=== PATIENT | female | born 1945 | race Caucasian/White ===

== ENCOUNTER 2023-02-21 17:40 | Emergency (ER) | payer MEDICARE, SELFPAY ==
[2023-02-21 17:44] VITALS: BP 158/82; PULSE 62; RESP 22; TEMP 36.6; O2SAT 98; BMI 36.0
--- NOTE | 2023-02-21 18:05 | ED.GENADUL1 ---
Documented by User: JACQUE Cantu 02/21/23 18:08 HPI - General Adult General Chief complaint: Skin/Abscess/Foreign Body Stated complaint: bite Time Seen by Provider: 02/21/23 17:46 Source: patient Mode of arrival: walk-in History of Present Illness HPI narrative: patient is a 77-year-old female who presents to the emergency department for redness and swelling to the left hand, dorsum. Patient states she was stung by an insect this morning, approximately six hours ago and throughout the day she has developed redness and swelling of the dorsum of the left hand. She denies any diffuse urticaria. She does not believe the insect was a bee. She denies lip swelling, tongue swelling or difficulty breathing. No medications taken prior to arrival. Related Data Previous Rx's Medication Instructions Recorded hydroxyzine HCl 25 mg tablet 25 mg PO Q6H PRN itching #20 tabs 02/21/23 prednisone 20 mg tablet See Rx Instructions .Route 02/21/23 .COMPLEX 4 days #6 tabs Allergies Allergy/AdvReac Type Severity Reaction Status Date / Time No Known Drug Allergies Allergy Verified 02/21/23 17:44 Review of Systems ROS Constitutional Denies: fever or chills Ears, nose, mouth, and throat Denies: throat pain Respiratory Denies: shortness of breath Gastrointestinal Denies: nausea or vomiting Musculoskeletal Denies: back pain Integumentary/Breast Reports: rash Endocrine Denies: excessive urination Hematologic/Lymphatic Denies: easy bruising Exam Narrative Exam Narrative: Gen.: Awake, alert, in no distress Head: Normocephalic, atraumatic ENT: Moist mucous membranes, no facial swelling, tongue swelling or lip swelling noted. Respiratory: No respiratory distress, lungs clear bilaterally; no wheezing or stridor Cardio: Regular rate and rhythm Extremities: Moves extremities equally, dorsum of the left hand is diffusely edematous and mildly erythematous. There is no swelling or redness over the left wrist. No red streaking or diffuse urticaria noted. No evidence of retained stinger Psych: Normal mood and affect Neuro: No focal neuro deficit Skin: Warm, dry, intact Constitutional Vital Signs, click to edit/add: Last Vital Signs Temp 97.8 F 02/21/23 17:44 Pulse 62 02/21/23 17:44 Resp 22 02/21/23 17:44 BP 158/82 H 02/21/23 17:44 Pulse Ox 98 02/21/23 17:44 O2 Del Method Room Air 02/21/23 18:02 Course Vital Signs Vital signs: Vital Signs Temperature 97.8 F 02/21/23 17:44 Pulse Rate 62 02/21/23 17:44 Respiratory Rate 22 02/21/23 17:44 Blood Pressure 158/82 H 02/21/23 17:44 Pulse Oximetry 98 02/21/23 17:44 Oxygen Delivery Method Room Air 02/21/23 17:44 Temperature 97.8 F 02/21/23 17:44 Pulse Rate 62 02/21/23 17:44 Respiratory Rate 22 02/21/23 17:44 Blood Pressure 158/82 H 02/21/23 17:44 Pulse Oximetry 98 02/21/23 17:44 Oxygen Delivery Method Room Air 02/21/23 18:02 Medical Decision Making MDM Narrative Medical decision making narrative: exam is consistent with localized ALLERGIC reaction from insect sting to the left hand. She was treated with prednisone in the Emergency Room discharged home on antihistamines and a short course of steroids. patient denies any history of diabetes. Follow-up with PCP. Apply ice to the area and return to the Emergency Room if symptoms change or worsen. Medical Records Medical records reviewed: Yes I reviewed the patient's medical records Discharge Plan Discharge Chief Complaint: Skin/Abscess/Foreign Body Clinical Impression: Insect sting, Localized swelling on left hand Patient Disposition: Home, Self-Care Time of Disposition Decision: 18:00 Condition: Good Prescriptions / Home Meds: New hydroxyzine HCl 25 mg tablet 25 mg PO Q6H PRN (Reason: itching) Qty: 20 0RF prednisone 20 mg tablet See Rx Instructions .ROUTE .COMPLEX 4 Days Qty: 6 0RF Rx Instructions: 2 tabs daily for 2 days, then 1 tab daily for 2 days Instructions: Insect Bite or Sting (ED) Stand Alone Forms: Portal Instructions Referrals: Evelio Huston MD [Primary Care Provider] - 1 week Discharge Date/Time: 02/21/23 18:16 Documented by User: Levi Ly MD 02/21/23 20:20 HPI - General Adult General Chief complaint: Skin/Abscess/Foreign Body Stated complaint: bite Time Seen by Provider: 02/21/23 17:46 Related Data Previous Rx's Medication Instructions Recorded hydroxyzine HCl 25 mg tablet 25 mg PO Q6H PRN itching #20 tabs 02/21/23 prednisone 20 mg tablet See Rx Instructions .Route 02/21/23 .COMPLEX 4 days #6 tabs Allergies Allergy/AdvReac Type Severity Reaction Status Date / Time No Known Drug Allergies Allergy Verified 02/21/23 17:44 Exam Constitutional Vital Signs, click to edit/add: Last Vital Signs Temp 97.8 F 02/21/23 17:44 Pulse 62 02/21/23 17:44 Resp 22 02/21/23 17:44 BP 158/82 H 02/21/23 17:44 Pulse Ox 98 02/21/23 17:44 O2 Del Method Room Air 02/21/23 18:02 Course Vital Signs Vital signs: Vital Signs Temperature 97.8 F 02/21/23 17:44 Pulse Rate 62 02/21/23 17:44 Respiratory Rate 22 02/21/23 17:44 Blood Pressure 158/82 H 02/21/23 17:44 Pulse Oximetry 98 02/21/23 17:44 Oxygen Delivery Method Room Air 02/21/23 17:44 Temperature 97.8 F 02/21/23 17:44 Pulse Rate 62 02/21/23 17:44 Respiratory Rate 22 02/21/23 17:44 Blood Pressure 158/82 H 02/21/23 17:44 Pulse Oximetry 98 02/21/23 17:44 Oxygen Delivery Method Room Air 02/21/23 18:02 Medical Decision Making MDM Narrative Medical decision making narrative: exam is consistent with localized ALLERGIC reaction from insect sting to the left hand. She was treated with prednisone in the Emergency Room discharged home on antihistamines and a short course of steroids. patient denies any history of diabetes. Follow-up with PCP. Apply ice to the area and return to the Emergency Room if symptoms change or worsen. I, Dr Ly, have reviewed the above progress note and course of action in the ER; agree with the above. I have personally seen and evaluated this patient, gone over history and physical, and discussed disposition and treatment plan with the patient. Discharge Plan Discharge Chief Complaint: Skin/Abscess/Foreign Body Clinical Impression: Insect sting, Localized swelling on left hand Patient Disposition: Home, Self-Care Time of Disposition Decision: 18:00 Condition: Good Prescriptions / Home Meds: New hydroxyzine HCl 25 mg tablet 25 mg PO Q6H PRN (Reason: itching) Qty: 20 0RF prednisone 20 mg tablet See Rx Instructions .ROUTE .COMPLEX 4 Days Qty: 6 0RF Rx Instructions: 2 tabs daily for 2 days, then 1 tab daily for 2 days Instructions: Insect Bite or Sting (ED) Stand Alone Forms: Portal Instructions Referrals: Evelio Hustno MD [Primary Care Provider] - 1 week Discharge Date/Time: 02/21/23 18:16
[2023-02-21] MEDS: PREDNISONE 20 MG TABLET 60 MG PO (18:12)
== END 2023-02-21 18:16 | disposition home or self-care (01) ==
PROVIDERS: Emergency Provider Emergency Medicine; PCP Family Medicine
DX: T63.481A Toxic effect of venom of other arthropod, accidental (unintentional), initial encounter (principal)
CPT/HCPCS: 99283

== ENCOUNTER 2023-03-20 09:31 | Outpatient (OUT) | payer MEDICARE, SELFPAY ==
[2023-03-20 09:56] LABS: Basophils Percent Auto 0.5 % (0.2-2.0); Eosinophils Absolute Auto 0.2 10^3/uL (0.0-0.7); Eosinophils Percent Auto 3.1 % (0.9-7.0); Hematocrit 41.4 % (36.0-48.0); Hemoglobin 13.9 g/dL (12.0-16.0); Immature Granulocytes Abs Auto 0.02 10^3/uL (0.00-0.03); Immature Granulocytes Pct Auto 0.3 % (0.0-0.5); Lymphocytes Absolute Auto 2.4 10^3/uL (1.2-3.8); Lymphocytes Percent Auto 37.8 % (20.5-60.0); Mean Corpuscular HGB Conc 33.6 g/dL (29.9-35.2); Mean Corpuscular Hemoglobin 31.4 pg (26.7-34.0); Mean Corpuscular Volume 93.5 fL (81.0-99.0); Mean Platelet Volume 9.9 fL (9.5-13.5); Monocytes Absolute Auto 0.5 10^3/uL (0.3-0.8); Monocytes Percent Auto 7.3 % (1.7-12.0); Neutrophils Absolute Auto 3.3 10^3/uL (1.4-6.5); Platelet Count 287 10^3/uL (150-450); Red Blood Count 4.43 10^6/uL (4.20-5.40); Red Cell Distribution Width 12.9 % (11.0-15.0); White Blood Count 6.4 10^3/uL (4.0-11.0)
[2023-03-20 10:49] LABS: Estimated Average Glucose 117 mg/dL; Glycohemoglobin A1C 5.7 % (4.5-6.2)
[2023-03-20 11:46] LABS: Alanine Aminotransferase 28 U/L (14-59); Albumin Globulin Ratio 1.1; Albumin Level 3.6 g/dL (3.4-5.0); Alkaline Phosphatase 61 U/L (46-116); Anion Gap 6.5; Aspartate Amino Transferase 15 U/L (15-37); BUN Creatinine Ratio 15.5; Bilirubin Total 0.4 mg/dL (0.2-1.0); Calcium 8.7 mg/dL (8.5-10.1); Carbon Dioxide 32.5 mmol/L (21.0-32.0); Chloride 109 mmol/L (98-107); Chol HDL Ratio 3.2; Cholesterol 201 mg/dL (<=200); Estimated GFR (African America >60 (>=60); Estimated GFR (Non-African Ame 52 (>=60); Globulin 3.3 g/dL; Glucose 101 mg/dL (74-106); HDL Cholesterol 62 mg/dL (40-60); Sodium 144 mmol/L (136-145); Thyroid Stimulating Hormone 0.407 uIU/mL (0.358-3.740); Total Protein 6.9 g/dL (6.4-8.2); Triglycerides 108 mg/dL (<=150); VLDL CHOLESTEROL 21.6 mg/dL
[2023-03-20 12:21] LABS: Free T4 1.03 ng/dL (0.76-1.46)
== END 2023-03-20 09:32 | disposition home or self-care (01) ==
PROVIDERS: PCP Family Medicine; Visit Provider Family Medicine
DX: R53.83 Other fatigue (principal); Z79.899 Other long term (current) drug therapy; E78.5 Hyperlipidemia, unspecified; E03.9 Hypothyroidism, unspecified; R73.09 Other abnormal glucose
CPT/HCPCS: 36415; 80053; 80061; 83036; 84439; 84443; 85025

== ENCOUNTER 2024-03-15 09:34 | Outpatient (OUT) | payer MEDICARE, SELFPAY ==
[2024-03-15 10:13] LABS: Basophils Percent Auto 0.3 % (0.2-2.0); Eosinophils Absolute Auto 0.1 10^3/uL (0.0-0.7); Hematocrit 40.7 % (36.0-48.0); Hemoglobin 13.7 g/dL (12.0-16.0); Immature Granulocytes Abs Auto 0.03 10^3/uL (0.00-0.03); Immature Granulocytes Pct Auto 0.4 % (0.0-0.5); Lymphocytes Absolute Auto 2.2 10^3/uL (1.2-3.8); Lymphocytes Percent Auto 31.6 % (20.5-60.0); Mean Corpuscular HGB Conc 33.7 g/dL (29.9-35.2); Mean Corpuscular Hemoglobin 31.6 pg (26.7-34.0); Mean Platelet Volume 10.5 fL (9.5-13.5); Monocytes Absolute Auto 0.4 10^3/uL (0.3-0.8); Monocytes Percent Auto 6.2 % (1.7-12.0); Neutrophils Absolute Auto 4.1 10^3/uL (1.4-6.5); Neutrophils Percent Auto 59.5 % (43.0-75.0); Platelet Count 272 10^3/uL (150-450); Red Blood Count 4.33 10^6/uL (4.20-5.40); Red Cell Distribution Width 12.3 % (11.0-15.0); White Blood Count 6.9 10^3/uL (4.0-11.0)
[2024-03-15 11:29] LABS: Estimated Average Glucose 114 mg/dL; Glycohemoglobin A1C 5.6 % (4.5-6.2)
[2024-03-15 11:56] LABS: Alanine Aminotransferase 35 U/L (14-59); Albumin Globulin Ratio 1.2; Albumin Level 3.6 g/dL (3.4-5.0); Alkaline Phosphatase 73 U/L (46-116); Aspartate Amino Transferase 20 U/L (15-37); BUN Creatinine Ratio 11.5; Bilirubin Total 0.5 mg/dL (0.2-1.0); Calcium 9.1 mg/dL (8.5-10.1); Carbon Dioxide 30.3 mmol/L (21.0-32.0); Chloride 106 mmol/L (98-107); Chol HDL Ratio 3.5; Cholesterol 219 mg/dL (<=200); Estimated GFR (African America >60 (>=60); Estimated GFR (Non-African Ame >60 (>=60); Free T3 2.62 pg/mL (2.18-3.98); Globulin 3.1 g/dL; Glucose 110 mg/dL (74-106); HDL Cholesterol 63 mg/dL (40-60); Potassium 4.3 mmol/L (3.5-5.1); Sodium 144 mmol/L (136-145); Thyroid Stimulating Hormone 0.813 uIU/mL (0.358-3.740); Total Protein 6.7 g/dL (6.4-8.2); Triglycerides 127 mg/dL (<=150); VLDL CHOLESTEROL 25.4 mg/dL
[2024-03-16 10:12] LABS: Insulin 13.6 uIU/mL (2.6-24.9)
== END 2024-03-15 09:35 | disposition home or self-care (01) ==
LOC: LAB 09:38
PROVIDERS: PCP Family Medicine; Visit Provider Family Medicine
DX: E03.9 Hypothyroidism, unspecified (principal); I10 Essential (primary) hypertension; K58.9 Irritable bowel syndrome, unspecified; Z85.038 Personal history of other malignant neoplasm of large intestine; M54.30 Sciatica, unspecified side; E78.5 Hyperlipidemia, unspecified; R53.83 Other fatigue; R73.09 Other abnormal glucose; D64.9 Anemia, unspecified
CPT/HCPCS: 36415; 80053; 80061; 83036; 83525; 83540; 84436; 84443; 84481; 85025

== ENCOUNTER 2024-03-19 12:41 | Outpatient (OUT) | payer MEDICARE, SELFPAY ==
--- NOTE | 2024-03-19 12:57 | MM_ITS ---
Patient Name: ASAEL HERNANDES MR#: [id number] : 1945 Exam Date: 03/19/2024 Ordering Doctor: DR SUMAN PETERSON . RADIOLOGY REPORT PROCEDURE: MM TOMOSYNTHESIS SCREENING BI COMPARISON: MG MAMM SCREEN 3D CHRISTIANO CAD, 03/18/2022. MAMMO POST BIOPSY LEFT, 08/06/2018. INDICATIONS: Screening Calculator Name NCI Breast Cancer Risk Assessment Tool 5 Year Breast Cancer Risk 2.10% Lifetime Breast Cancer Risk 4.00% Personal Breast Cancer No Personal Ovarian Cancer No Treatments None Family Cancers Daughter with colon cancer at age 33. LOCATION: [facility] BREAST COMPOSITION: The breasts are heterogeneously dense,which may obscure small masses. FINDINGS: DIAGNOSTIC CATEGORY 2--BENIGN FINDING. NO CHANGE FROM COMPARISON. Scattered benign-appearing calcifications are present. Scattered benign-appearing lymph nodes are present. RIGHT BREAST: No significant suspicious finding. LEFT BREAST: No significant suspicious finding. Stable micro clip marker upper outer quadrant, mid breast RECOMMENDATIONS: ROUTINE MAMMOGRAM AND CLINICAL EVALUATION IN 12 MONTHS. PLEASE NOTE: A NORMAL MAMMOGRAM DOES NOT EXCLUDE THE POSSIBILITY OF BREAST CANCER. A CLINICALLY SUSPICIOUS PALPABLE LUMP SHOULD BE BIOPSIED. Dictated by: Scar Dobbins MD on 03/19/2024 at 14:57 Approved by: Scar Dobbins MD on 03/19/2024 at 14:59
== END 2024-03-19 12:42 | disposition home or self-care (01) ==
LOC: MAMMO 12:43
PROVIDERS: PCP Family Medicine; Visit Provider Family Medicine
DX: Z12.31 Encounter for screening mammogram for malignant neoplasm of breast (principal); Z80.0 Family history of malignant neoplasm of digestive organs
CPT/HCPCS: 77063; 77067

== ENCOUNTER 2025-03-11 09:42 | Outpatient (OUT) | payer MEDICARE, SELFPAY ==
--- OUTSIDE RECORDS SUMMARY | 2025-03-11 09:47 | XMS_ITS | Clinical Summary ---
Author Organization [facility] Address [address] [place] [address] Care Team Providers Care Hha Name Role Phone Unavailable Primary Care Provider Unavailabl e Social History Tobacco Use Types Packs/Day Years Used Date Smoking Tobacco: Never Assessed Comments Unknown Sex and Gender Information Value Date Recorded Sex Assigned at Not on file Legal Sex Female 7:40 PM EDT Gender Identity Not on file Sexual Orientation Not on file Plan of Treatment Not on file
[2025-03-11 10:21] LABS: Hematocrit 40.7 % (36.0-48.0); Hemoglobin 13.7 g/dL (12.0-16.0); Immature Granulocytes Abs Auto 0.04 10^3/uL (0.00-0.03); Immature Granulocytes Pct Auto 0.4 % (0.0-0.5); Lymphocytes Absolute Auto 2.4 10^3/uL (1.2-3.8); Mean Corpuscular HGB Conc 33.7 g/dL (29.9-35.2); Mean Corpuscular Hemoglobin 31.8 pg (26.7-34.0); Mean Corpuscular Volume 94.4 fL (81.0-99.0); Platelet Count 273 10^3/uL (150-450); Red Blood Count 4.31 10^6/uL (4.20-5.40); White Blood Count 9.4 10^3/uL (4.0-11.0)
--- OUTSIDE RECORDS SUMMARY | 2025-03-11 10:49 | XMS_ITS | CCD ---
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 Role Phone NICHOLAS ., DR WILL Primary Care Unavailable BITA, DR ANETTE Mendez Attending Unavailable BITA, DR ANETTE Mendez Admitting Unavailable BITA, DR ANETTE Mendez Consulting Unavailable AARON VICENTE Consulting Unavailable COLLINY ., DR WILL Admitting Unavailable HOY ., DR WILL Primary Care Unavailable HOY ., DR WILL Consulting Unavailable HOY ., DR WILL Attending Unavailable HOY ., DR WILL Admitting Unavailable HOY ., DR WILL Primary Care Unavailable HOY ., DR WILL Consulting Unavailable HOY ., DR WILL Attending Unavailable DESIREE, DR DENIS Mendez Consulting Unavailable Allergies Allergy Classification Reported Allergen(s) Allergy Type Date of Onset Reaction(s) Facility (1 source) Adhesive bandage Drug allergy (disorder) [facility] Repository (1 source) meloxicam Drug Allergy [facility] Rep[facility] Problems Active Problems Problem Classification Problem Date Documented Da te Episodic/Chronic Essential hypertension (1 source) Essential (primary) hypertension; 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: [ESSENTIAL PRIMARY HYPERTENSION] Onset: 04-15-2022 Chronic Headache; including migraine (4 sources) Headache; including migraine; 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: [HEADACHE UNSPECIFIED] Onset: 04-13-2022 Other gastrointestinal disorders (1 source) Irritable bowel syndrome without diarrhea; 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: [IRRITABLE BOWEL SYND W/O DIARRHEA] Onset: 03-21-2022 Chronic Other upper respiratory infections (4 sources) Acute sinusitis, unspecified; 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: [ACUTE SINUSITIS UNSPECIFIED] Onset: 09-21-2022 Episodic Thyroid disorders (1 source) Hypothyroidism, unspecified; 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: [HYPOTHYROIDISM UNSPECIFIED] Onset: 03-21-2022 Chronic Viral infection (1 source) COVID-19; 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: [COVID-19] Onset: 09-25-2022 Past or Other Problems Problem Classification Problem Date Documented Da te Episodic/Chronic Deficiency and other anemia (1 source) Anemia, unspecified; 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: [ANEMIA UNSPECIFIED] Onset: 03-21-2022 Episodic Diabetes mellitus without complication (1 source) Other abnormal glucose; 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: [OTHER ABNORMAL GLUCOSE] Onset: 03-21-2022 Episodic Other aftercare (1 source) 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; 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: [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] Onset: 04-15-2022 Episodic Other aftercare (1 source) Other care home (current) drug therapy; 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: [OTH SNF CURRENT DRUG THERAPY] Onset: 04-15-2022 Episodic Other screening for suspected conditions (not mental disorders or infectious disease) (4 sources) Encounter for screening mammogram for malignant neoplasm of breast; 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: [ENC SCR MAMMO MALIG NEOPLASM BREAST] Onset: 03-18-2022 Episodic Screening and history of mental health and substance abuse codes (1 source) Personal history of nicotine dependence; 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: [PERSONAL HISTORY OF NICOTINE DEPEND] Onset: 04-15-2022 Episodic Results Test Name Value Interpretation Reference Range Facility Covid-19 PCR ([facility])on SARS-CoV-2 (COVID-19) RNA HONORIO+probe Ql (Unsp spec) Detected Abnormal NOT DETECTED [facility] Comment on above: Result Comment: This test is not yet approved or cleared by the [place] FDA. When there are no FDA-approved or cleared tests available, and other criteria are met, FDA can make tests available under an emergency access mechanism called an Emergency Use Authorization (EUA). The EUA for this test is supported by the Environmental Aide of Health and Human Service's declaration that circumstances exist to justify the emergency use of in vitro diagnostics for the detection and/or diagnosis of the virus that causes COVID-19. This EUA will remain in effect for the duration of the COVID-19 declaration justifying emergency of IVDs, unless it is terminated or revoked by the FDA (after which the test may no longer be used). Performed By: #### C [facility] #### [facility] [address] [place] [address] HEAD WO CONon 04-14-2022 CT HEAD WO CON EXAM: CT HEAD WO CON CLINICAL INDICATION: HEADACHE COMPARISON: None TECHNIQUE: Axial CT images of the brain were obtained without contrast. Dose reduction techniques were achieved by using automated exposure control and/or adjustment of mA and/or kV according to patient size and/or use of iterative reconstruction technique. FINDINGS: Brain parenchyma: No mass effect or midline shift is seen. Mcdowell-white differentiation is maintained. No findings suspicious for intracranial hemorrhage. No findings suggesting acute stroke. Periventricular hypoattenuation / patchy white matter hypodensities are statistically most often related to small vessel ischemic disease. Ventricles and extra-axial spaces: Ventricles are concordant with sulci. No findings suggesting hydrocephalus. Visualized paranasal sinuses: No findings suggesting acute sinusitis. Mastoid air cells: Clear. Included portions of the orbits:Included portions of the orbits with no evidence of fracture or other acute pathology. Bones: No fracture is seen. Impression: 1. No evidence for an acute intracranial abnormality. Electronically authenticated by: AARON VICENTE Date: 2022-04-13 22:58 Normal [facility] INSULINon 03-19-2022 Insulin 17.5 uIU/mL Normal 2.6-24.9 [facility] Comment on above: Performed By: #### I NSULIN #### [facility] [address] [place] [address] Dr. Deven Ge T4, T3U, FTI LABCORPon 03-19 Free Thyroxine Index 2.2 Normal 1.2-4.9 [facility] Comment on above: Performed By: #### T HYLC #### [facility] [address] [place] [address] Dr. Deven Ge T3 Uptake 27 % Normal 24-39 [facility] Comment on above: Performed By: #### T HYLC #### [facility] [address] [place] [address] Dr. Deven Ge T4 [Mass/Vol] 8.2 ug/dL Normal 4.5-12.0 [facility] Comment on above: Performed By: #### T HYLC #### [facility] [address] [place] [address] Dr. Deven Ge CBC AUTO DIFFon 03-18-2022 BASO # 0.0 103/ul Normal 0.0-0.1 [facility] Comment on above: Performed By: #### C BC ####[facility] [address] [place] [id number]. Deven Ge Basophils/100 WBC (Bld) 0.4 % Normal 0.2-2.0 [facility] Comment on above: Performed By: #### C BC ####[facility] [address] [place], [place] [id number]. Deven Ge EO # 0.1 103/ul Normal 0.0-0.7 [facility] Comment on above: Performed By: #### C BC ####[facility] [address] [place], [place] [address]Dr. Deven Ge Eosinophils/100 WBC (Bld) 1.9 % Normal 0.9-7.0 [facility] Comment on above: Performed By: #### C BC ####[facility] [address] [place], [place] [address]Dr. Deven Ge Erythrocyte distribution width (RBC) [Ratio] 12.6 % Normal 11.0-15.0 [facility] Comment on above: Performed By: #### C BC ####[facility] [address] [place], [place] [address]Dr. Deven Ge Hematocrit (Bld) [Volume fraction] 40.7 % Normal 36.0-48.0 [facility] Comment on above: Performed By: #### C BC ####[facility] [address] [place], [place] [address]Dr. Deven Ge Hemoglobin (Bld) [Mass/Vol] 13.4 g/dL Normal 12.0-16.0 [facility] Comment on above: Performed By: #### C BC ####[facility] [address] [place], [place] [address]Dr. Deven Ge IG # 0.02 10e3/ul Normal 0.00-0.03 [facility] Comment on above: Performed By: #### C BC ####[facility] [address] [place], [place] [address]Dr. Deven Ge IG % 0.3 % Normal 0.0-0.5 [facility] Comment on above: Performed By: #### C BC ####[facility] [address] [place] [id number]. Deven Ge LYMPH # 2.1 103/ul Normal 1.2-3.8 [facility] Comment on above: Performed By: #### C BC ####[facility] [address] [place] [id number]. Deven Joo Lymphocytes/100 WBC (Bld) 31.2 % Normal 20.5-60.0 [facility] Comment on above: Performed By: #### C BC ####[facility] [address] [place] [id number]. Amairaniana Ge MANUAL DIFF REQ NO Normal [facility] Comment on above: Performed By: #### C BC ####[facility] [address] [place] [id number]. Deven Joo MCH (RBC) [Entitic mass] 31.2 pg Normal 26.7-34.0 [facility] Comment on above: Performed By: #### C BC ####[facility] [address] [place] [id number]. Deven Ge MCHC (RBC) [Mass/Vol] 32.9 g/dL Normal 29.9-35.2 [facility] Comment on above: Performed By: #### C BC ####[facility] [address] [place] [id number]. Deven Joo MCV (RBC) [Entitic vol] 94.9 fL Normal 81.0-99.0 [facility] Comment on above: Performed By: #### C BC ####[facility] [address] [place] [id number]. Deven Ge MONO # 0.5 103/ul Normal 0.3-0.8 [facility] Comment on above: Performed By: #### C BC ####[facility] [address] [place] [id number]. Deven Joo Monocytes/100 WBC (Bld) 6.6 % Normal 1.7-12.0 [facility] Comment on above: Performed By: #### C BC ####[facility] [address] [place] [id number]. Amairaniana Ge NEUT # 4.1 103/ul Normal 1.4-6.5 [facility] Comment on above: Performed By: #### C BC ####[facility] [address] [place] [id number]. Deven Ge Neutrophils/100 WBC (Bld) 59.6 % Normal 43.0-75.0 [facility] Comment on above: Performed By: #### C BC ####[facility] [address] [place] [id number]. Deven Ge Platelet mean volume (Bld) [Entitic vol] 10.7 fL Normal 9.5-13.5 [facility] Comment on above: Performed By: #### C BC ####[facility] [address] [place] [address]Dr. Deven Ge PLT 308 103/ul Normal 150-450 [facility] Comment on above: Performed By: #### C BC ####[facility] [address] [place] [id number]. Deven Ge RBC 4.29 106/ul Normal 4.20-5.40 [facility] Comment on above: Performed By: #### C BC ####[facility] [address] [place] [id number]. Deven Ge WBC 6.9 103/ul Normal 4.0-11.0 [facility] Comment on above: Performed By: #### C BC ####[facility] [address] [place] [id number] Ge GLYCOHEMOGLOBIN A1Con 2021 ADA RECOMMENDATION SEE BELOW Normal [facility] Comment on above: Result Comment: ADA RECOMMENDED LIMIT 4.0 - 6.0 ADA THERAPEUTIC TARGET < 7.0 ACTION SUGGESTED > 7.0 Performed By: #### A 1C #### [facility] [address] [place], [place] [address] Dr. Deven Ge Glucose [Mass/Vol] 111 mg/dL Normal [facility] Comment on above: Performed By: #### A 1C #### [facility] [address] [place] [address] [address] Deven Ge HbA1c (Bld) [Mass fraction] 5.5 % Normal 4.5-6.2 [facility] Comment on above: Performed By: #### A 1C #### [facility] [address] [place] [address] [address] Deven Ge IRONon 03-18-2022 Iron [Mass/Vol] 111.0 ug/dL Normal 50.0-170.0 [facility] Comment on above: Performed By: #### I SHAWN #### [facility] [address] [place] [address] [address] Deven Ge LIPID PROFILEon 03-18-2022 CHOL-HDL RATIO NORM SEE BELOW Normal [facility] Comment on above: Result Comment: 3.3 - 4.4 LOW RISK 4.4 - 7.1 AVERAGE RISK 7.1 - 11.0 MODERATE RISK >11.0 HIGH RISK Performed By: #### L IPID, CMP, TSH #### [facility] [address] [place] [address] [address] Deven Ge Cholesterol [Mass/Vol] 220 mg/dL Critically high <=200 [facility] Comment on above: Performed By: #### L IPID, CMP, TSH #### [facility] [address] [place] [address] [address] Deven Ge Cholesterol in HDL [Mass/Vol] 61 mg/dL Critically high 40-60 [facility] Comment on above: Performed By: #### L IPID, CMP, TSH #### [facility] [address] [place] [address] [address] Deven Ge Cholesterol in LDL [Mass/Vol] 132.2 mg/dL Normal [facility] Comment on above: Performed By: #### L IPID, CMP, TSH #### [facility] [address] [place] [address] [address] Deven Ge Cholesterol.total/Cho lesterol in HDL [Mass ratio] 3.6 {ratio} Normal [facility] Comment on above: Performed By: #### L IPID, CMP, TSH #### [facility] [address] [place] [address] [address] Deven Ge HDL NORMAL > or = 60 mg/dl - LO W CARDIOVASCULAR RISK <40 mg/dl - HIGH CARDIOVASCULAR RISK Normal [facility] Comment on above: Performed By: #### L IPID, CMP, TSH #### [facility] [address] [place] [address] [address] Deven Ge LDL CALC NORMAL SEE BELOW Normal [facility] Comment on above: Result Comment: <100 mg/dl OPTIMAL 100 - 129 mg/dl NEAR OR ABOVE OPTIMAL 130 - 159 mg/dl BORDERLINE HIGH 160 - 189 mg/dl HIGH >190 mg/dl VERY HIGH Performed By: #### L IPID, CMP, TSH #### [facility] [address] [place] [address] [address] Deven Ge Triglyceride [Mass/Vol] 134 mg/dL Normal <=150 [facility] Comment on above: Performed By: #### L IPID, CMP, TSH #### [facility] [address] [place] [address] [address] Deven Ge VLDL CALC 26.8 mg/dL Normal [facility] Comment on above: Performed By: #### L IPID, CMP, TSH #### [facility] [address] [place] [address] [address] Deven Ge MG MAMM SCREEN 3D CHRISTIANO CADon 03-18-2022 MG MAMM SCREEN 3D CHRISTIANO CAD Patient: ASAEL COONEY Exam Date: 03/18/2022 : 1945 Gender:F Ordering : DR SUMAN HUSTON . Admission #: [id number] Family : Order #: [id number] CLICK HERE TO VIEW EXAM RADIOLOGY REPORT PROCEDURE: MAMMOGRAM SCREENING 3D BILATERAL CAD COMPARISON: MAMMO POST BIOPSY LEFT, 07/26/2018. MG MAMM SCREEN CHRISTIANO W CAD, 01/11/2018. MG MAMM CHRISTIANO DIAG W CAD DIG, 10/28/2013. MAMMO POST BIOPSY LEFT, 08/06/2018. INDICATIONS: Screening mammography Calculator Name NCI Breast Cancer Risk Assessment Tool 5 Year Breast Cancer Risk 2.10% Lifetime Breast Cancer Risk 4.50% Personal Breast Cancer No Personal Ovarian Cancer No Treatments None Family Cancers Daughter with colon cancer at age 33. LOCATION: [facility] BREAST COMPOSITION: Heterogeneously dense,which may obscure small masses. FINDINGS: DIAGNOSTIC CATEGORY 2--BENIGN FINDING: RIGHT BREAST: No significant suspicious finding. Scattered benign-appearing calcifications are present. No significant change has occurred. LEFT BREAST: No significant suspicious finding. Scattered benign-appearing calcifications are present. Scattered benign-appearing nodules are present. No significant change has occurred. RECOMMENDATIONS: ROUTINE MAMMOGRAM AND CLINICAL EVALUATION IN 12 MONTHS. PLEASE NOTE: A NORMAL MAMMOGRAM DOES NOT EXCLUDE THE POSSIBILITY OF BREAST CANCER. A CLINICALLY SUSPICIOUS PALPABLE LUMP SHOULD BE BIOPSIED. Dictated by: Denis Montez M.D. on 03/18/2022 at 14:49 Approved by: Denis Montez M.D. on 03/18/2022 at 14:52 Normal [facility] PROF 14(COMP METB)on 022 Albumin [Mass/Vol] 3.6 g/dL Normal 3.4-5.0 [facility] Comment on above: Performed By: #### L IPID, CMP, TSH #### [facility] [address] [place] [address] [address] Deven Ge Albumin/Globulin [Mass ratio] 1.0 {ratio} Normal [facility] Comment on above: Performed By: #### L IPID, CMP, TSH #### [facility] [address] [place] [address] [address] Deven Ge ALP [Catalytic activity/Vol] 69 U/L Normal 46-116 [facility] Comment on above: Performed By: #### L IPID, CMP, TSH #### [facility] [address] [place] [address] [address] Deven Ge ALT [Catalytic activity/Vol] 24 U/L Normal 14-59 [facility] Comment on above: Performed By: #### L IPID, CMP, TSH #### [facility] [address] [place] [address] [address] Deven Ge Anion gap [Moles/Vol] 11.2 mmol/L Normal [facility] Comment on above: Performed By: #### L IPID, CMP, TSH #### [facility] [address] [place] [address] [address] Deven Ge AST [Catalytic activity/Vol] 13 U/L Critically low 15-37 [facility] Comment on above: Performed By: #### L IPID, CMP, TSH #### [facility] [address] [place] [address] [address] Deven Ge Bilirubin [Mass/Vol] 0.4 mg/dL Normal 0.2-1.0 [facility] Comment on above: Performed By: #### L IPID, CMP, TSH #### [facility] [address] [place] [address] [address] Deven Ge Calcium [Mass/Vol] 9.0 mg/dL Normal 8.5-10.1 [facility] Comment on above: Performed By: #### L IPID, CMP, TSH #### [facility] [address] [place] [address] [address] Deven Ge Chloride [Moles/Vol] 104 mmol/L Normal 98-107 [facility] Comment on above: Performed By: #### L IPID, CMP, TSH #### [facility] [address] [place] [address] [address] Deven Ge CO2 [Moles/Vol] 31.0 mmol/L Normal 21.0-32.0 [facility] Comment on above: Performed By: #### L IPID, CMP, TSH #### [facility] [address] [place] [address] [address] Deven Ge Creatinine [Mass/Vol] 0.87 mg/dL Normal 0.55-1.02 [facility] Comment on above: Performed By: #### L IPID, CMP, TSH #### [facility] [address] [place] [address] [address] Deven Ge EGFR-AF SAMOAN >60 Normal >=60 [facility] Comment on above: Performed By: #### L IPID, CMP, TSH #### [facility] [address] [place] [address] [address] Deven Ge EGFR-NON AF SAMOAN >60 Normal >=60 [facility] Comment on above: Performed By: #### L IPID, CMP, TSH #### [facility] [address] [place] [address] [address] Deven Ge Globulin (S) [Mass/Vol] 3.5 g/dL Normal [facility] Comment on above: Performed By: #### L IPID, CMP, TSH #### [facility] [address] [place] [address] [address] Deven Ge Glucose [Mass/Vol] 117 mg/dL Critically high 74-106 [facility] Comment on above: Performed By: #### L IPID, CMP, TSH #### [facility] [address] [place] [address] [address] Deven Ge Potassium [Moles/Vol] 4.2 mmol/L Normal 3.5-5.1 [facility] Comment on above: Performed By: #### L IPID, CMP, TSH #### [facility] [address] [place] [address] Dr. Deven Ge Protein [Mass/Vol] 7.1 g/dL Normal 6.4-8.2 [facility] Comment on above: Performed By: #### L IPID, CMP, TSH #### [facility] [address] [place] [address] Dr. Deven Ge Sodium [Moles/Vol] 142 mmol/L Normal 136-145 [facility] Comment on above: Performed By: #### L IPID, CMP, TSH #### [facility] [address] [place] [address] Dr. Deven Ge Urea nitrogen [Mass/Vol] 12.0 mg/dL Normal 7.0-18.0 [facility] Comment on above: Performed By: #### L IPID, CMP, TSH #### [facility] [address] [place] [address] Dr. Deven Ge Urea nitrogen/Creatinine [Mass ratio] 13.8 mg/mg Normal [facility] Comment on above: Performed By: #### L IPID, CMP, TSH #### [facility] [address] [place] [address] Dr. Deven Ge TSHon 03-18-2022 TSH 0.703 uIU/mL Normal 0.358-3.740 [facility] Comment on above: Performed By: #### L IPID, CMP, TSH #### [facility] [address] [place] [address] [address] Deven Ge Provider Letter FTon 09-30 Provider Letter [facility], [address] [place] [address] [place] [address] Re: ASAEL COONEY Date of : 1945 Thank you for your referral of Asael Cooney who was seen on consultation on 09/17/2020, for occult positive stool with history of colon cancer. A colonoscopy is planned for further evaluation. I have enclosed my consultation notes for your review. I will be happy to follow patient should her symptoms persist. Sincerely, Pavel Atkins MD General Surgery Normal [facility] Lab Reportson 09-28-2020 Lab Reports [id number]:127 Normal [facility] Consent for Procedure/Surger yon 09-21-2020 Consent for Procedure/Surgery [id number]:127 Normal [facility] Ambulatory Clinical Summaryo n 09-18-2020 Ambulatory Clinical Summary {[id number] Normal [facility] General Surgery Office/Clini c Noteon 09-18-2020 General Surgery Office/Clinic Note HPI Staff 74 year old female on consultation from Dr. Huston for occult positive stool. 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 Last colonoscopy was performed in [address] Champion at [facility]. States there is occasional blood in the stool. Denies abdominal pain or cramping but takes Metamucil daily for constipation. Daughter of colon cancer at age 36. Takes 81 mg aspirin daily. History of Present Illness 74 yo female with h/o htn, personal h/o colon cancer and colon polyps, s/p sigmoid colectomy 03/2008; last colonoscopy 4 years ago, no polyps at that time; denies change in bms or blood in stools, no abdominal complaints; abdominal operations also significant for [place]T; on baby asa daily and diclofenac prn; no SBE prophylaxis; fmhx of colon ca in patient's daughter, no fmhx of IBD. Review of Systems PHQ Score Initial Depression Screen Score: 0 ROS - Provider Constitutional: no fever, no sweats, no weight loss. Eyes: no glasses, no blurred vision, no visual loss. ENMT: no dentures, no hoarseness, no swallowing difficulties, no hearing loss, no ear infection(s), no nose bleeds. Cardiovascular: high blood pressure, no chest pain, regular heartbeat, no heart murmur. Respiratory: no shortness of breath, no cough, no asthma, no wheezing. Gastrointestinal: no nausea, no vomiting, no diarrhea, no constipation, no blood in stool, no change in bowel habits, no abdominal pain, no hepatitis. Genitourinary: no kidney stones, no urine infection, no dysuria. Musculoskeletal: no pain, no weakness. Skin: no changing moles, no rash, no skin lumps. Neurologic: no seizures, no epilepsy, no headache. Psychiatric: no emotional or psychiatric problem. Heme/Lymph: no bleeding problems, no anemia, no blood clots, no transfusions. Allergy/Immunologic: no swollen lymph nodes/glands, no IV drug abuse. Other: Additional ROS info: Except as noted in the above Review of Systems and in the History of Present Illness, all other systems have been reviewed and are negative or noncontributory. Physical Exam Vitals & Measurements T: 36.0(Tympanic) BP: 142/70 HT: 165.1 cm HT: 165.1 cm WT: 117.9 kg WT: 117.9 kg BMI: 43.25 HEENT: normal conjunctiva, sclera clear, no scleral icterus, EOM intact, PERRLA, oral mucosa moist without lesions. Neck: trachea midline, no mass, symmetric, no thyromegaly or nodules, no adenopathy Respiratory: lungs CTA, respirations non labored. Cardiovascular: regular rate and rhythm, no murmur, no pedal edema or varicosities. Gastrointestinal: obese, soft, non distended, no tenderness, no masses, no palpable hernias, diastasis recti yes, no hepatosplenomegaly; normal bs Lymphatic: no cervical adenopathy, no axillary adenopathy, Musculoskeletal: normal gait, digits and nails without infection, nodes, cyanosis, clubbing. Skin: no rashes, no lesions, no ulcers, no subcutaneous nodules, induration. Psychiatric/Neuro: oriented to time, place, person, judgement normal, affect appropriate for age, insight intact, no focal deficits. Tests: review of old records completed, Discussed surgical options, risks, and possible complications with patient. Assessment/Plan 1. Personal history of colon cancer (Z85.038: Personal history of other malignant neoplasm of large intestine) plan colonoscopy under anesthesia for surveillance; informed consent obtained. patient understands the risks associated with COVID-19, and the need for preoperative testing with self-isolation until the procedure. 2. Personal history of colonic polyps (Z86.010: Personal history of colonic polyps) see # 1 3. BMI 40.0-44.9, adult (Z68.41: Body mass index [BMI]40.0-44.9, adult) recommend diet and exercise. Follow-up No qualifying data available Problem List/Past Medical History Ongoing Arthralgia BMI 40.0-44.9, adult Breast mass Chronic GERD Colon cancer Diverticulosis Eczema HTN (hypertension) Hypothyroidism Irritable bowel Macular degeneration Obesity Personal history of colon cancer Personal history of colonic polyps Historical No qualifying data Procedure/Surgical History Partial resection of colon (07/24/2007), Abdominal hysterectomy, Colonoscopy. Medications aspirin 81 mg oral tablet Bystolic 10 mg Tab, 10 mg= 1 tab(s), Oral, Daily Caltrate 600 + D oral tablet, 1 tab(s), Oral, BID diclofenac sodium 75 mg Oral EC Tab, 75 mg= 1 tab(s), Oral, BID Nexium 40 mg Cap-EC, 40 mg= 1 cap(s), Oral, Daily Synthroid 100 mcg Tab, 100 mcg= 1 tab(s), Oral, Daily Allergies Mobic (Unknown) Social History Alcohol - Denies Alcohol Use, 09/18/2020 Substance Abuse - Denies Substance Abuse, 09/18/2020 Tobacco Former smoker, quit more than 30 days ago Tobacco Use:. Never Smokeless Tobacco Use:. Cigarettes, Stopped age 54 Years., 09/18/2020 Family History Family history is negative Normal [facility] Comment on above: Result Comment: Elec tronically Signed By: LUH CODY, Pavel Weston\Date and Time Signed: 09/18/20 10:04 EST Physician Referralon 021 Physician Referral [id number]:127 Normal [facility] Encounters Encounter Date Encounter Type Care Provider Facility Start: 09-21-2022 End: 09-21-[address] SUMAN HUSTON . Facility: Start: 04-13-2022 End: 04-14-[address] SUMAN HUSTON . Facility:[facility] Start: 03-18-2022 End: 03-19-[address] SUMAN HUSTON . Facility:[facility]1 Payers Date Payer Category Payer Medicare [id number] 1958 Private Health Insurance CAP [id number] 1945 Unknown [id number] 2.16.84 [id number] 1945 Unknown [id number] 2.16.84 [id number] 1945 Unknown [id number] [id number] [id number] Summary Purpose Family History No Family History Records FoundNo Family History Records Found Advance Directives No Advanced Directives Records FoundNo Advanced Directives Records Found Additional Source Comments INFORMATION SOURCE (unrecogn ized section and content) DATE CREATED AUTHOR 10/08/2020 [facility] DATE CREATED AUTHOR AUTHOR'S ORGANIZ ATION 09/27/2022 [facility] FOR RECORDS PERTAINING TO PATIENTS WHO ARE OR HAVE BEEN ENROLLED IN A CHEMICAL DEPENDENCY/SUBSTANCEABUSE PROGRAM, SOME INFORMATION MAY BE OMITTED. This clinical summary was aggregated from multiple sources. Caution should be exercised in using it in the provision of clinical care. This summary normalizes information from multiple sources, and as a consequence, information in this document may materially change the coding, format and clinical context of patient data. In addition, data may be omitted in some cases. CLINICAL DECISIONS SHOULD BE BASED ON THE PRIMARY CLINICAL RECORDS. [facility]. provides no warranty or guarantee of the accuracy or completeness of information in this document.
[2025-03-11 12:05] LABS: Alanine Aminotransferase 25 U/L (14-59); Albumin Globulin Ratio 0.9; Albumin Level 3.4 g/dL (3.4-5.0); Alkaline Phosphatase 71 U/L (46-116); Anion Gap 12.9; Aspartate Amino Transferase 17 U/L (15-37); Blood Urea Nitrogen 10.0 mg/dL (7.0-18.0); Calcium 9.0 mg/dL (8.5-10.1); Carbon Dioxide 29.2 mmol/L (21.0-32.0); Chloride 105 mmol/L (98-107); Cholesterol 205 mg/dL (<=200); Estimated GFR (African America >60 (>=60 mL/min/1.73m^2); Estimated GFR (Non-African Ame >60 (>=60 mL/min/1.73m^2); Free T3 2.11 pg/mL (2.18-3.98); Globulin 3.8 g/dL; Glucose 110 mg/dL (74-106); HDL Cholesterol 57 mg/dL (40-60); Potassium 4.1 mmol/L (3.5-5.1); Sodium 143 mmol/L (136-145); Thyroid Stimulating Hormone 0.877 uIU/mL (0.358-3.740); Total Protein 7.2 g/dL (6.4-8.2); Triglycerides 142 mg/dL (<=150); VLDL CHOLESTEROL 28.4 mg/dL
== END 2025-03-11 09:43 | disposition home or self-care (01) ==
LOC: LAB 09:44
PROVIDERS: PCP Family Medicine; Visit Provider Family Medicine
DX: E55.9 Vitamin D deficiency, unspecified (principal); R53.83 Other fatigue; E78.5 Hyperlipidemia, unspecified; Z12.11 Encounter for screening for malignant neoplasm of colon; E03.9 Hypothyroidism, unspecified
CPT/HCPCS: 36415; 80053; 80061; 82306; 84436; 84443; 84481; 85025

== ENCOUNTER 2025-03-12 14:12 | Outpatient (REF) | payer MEDICARE, SELFPAY ==
--- OUTSIDE RECORDS SUMMARY | 2025-03-12 14:15 | XMS_ITS | Clinical Summary ---
Author Organization [facility] Address [address] [place] [address] Care Team Providers Care Installer Apprentice Name Role Phone Unavailable Primary Care Provider [...]
--- OUTSIDE RECORDS SUMMARY | 2025-03-12 14:30 | XMS_ITS | CCD ---
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 When there are no FDA-approved or cleared tests available, and other criteria are met, FDA can make tests available under an emergency access mechanism called an Emergency Use Authorization (EUA). The EUA for this test is supported by the Production Estimator of Health and Human Service's declaration that [...] longer be used). Performed By: #### C [facility] #### [facility] [address] [place] [address] HEAD WO CONon [...] AARON VICENTE Date: 2022-04-13 22:58 Normal [facility] INSULINon 03-19-2022 Insulin 17.5 uIU/mL Normal 2.6-24.9 [facility] Comment on above: Performed By: #### I NSULIN #### [facility] [address] [place] [address] Dr. Deven Ge T4, T3U, FTI LABCORPon 03-19 Free Thyroxine Index 2.2 Normal 1.2-4.9 [facility] Comment on above: Performed By: #### T HYLC #### [facility] [address] [place] [address] Dr. Deven Ge T3 Uptake 27 % Normal 24-39 [facility] Comment on above: Performed By: #### T HYLC #### [facility] [address] [place] [address] Dr. Deven Ge T4 [Mass/Vol] 8.2 ug/dL Normal 4.5-12.0 [facility] Comment on above: Performed By: #### T HYLC #### [facility] [address] [place] [address] Dr. Deven Ge CBC AUTO DIFFon 03-18-2022 BASO # 0.0 103/ul Normal 0.0-0.1 [facility] Comment on above: Performed By: #### C BC ####[facility] [address] [place] [id number]. Deven Ge Basophils/100 WBC (Bld) 0.4 % Normal 0.2-2.0 [facility] Comment on above: Performed By: #### C BC ####[facility] [address] [place], [place] [id number]. Deven Ge EO # 0.1 103/ul Normal 0.0-0.7 [facility] Comment on above: Performed By: #### C BC ####[facility] [address] [place], [place] [address]Dr. Deven Ge Eosinophils/100 WBC (Bld) 1.9 % Normal 0.9-7.0 [facility] Comment on above: Performed By: #### C BC ####[facility] [address] [place], [place] [address]Dr. Deven Ge Erythrocyte distribution width (RBC) [Ratio] 12.6 % Normal 11.0-15.0 [facility] Comment on above: Performed By: #### C BC ####[facility] [address] [place], [place] [address]Dr. Deven Ge Hematocrit (Bld) [Volume fraction] 40.7 % Normal 36.0-48.0 [facility] Comment on above: Performed By: #### C BC ####[facility] [address] [place], [place] [address]Dr. Deven Ge Hemoglobin (Bld) [Mass/Vol] 13.4 g/dL Normal 12.0-16.0 [facility] Comment on above: Performed By: #### C BC ####[facility] [address] [place], [place] [address]Dr. Deven Ge IG # 0.02 10e3/ul Normal 0.00-0.03 [facility] Comment on above: Performed By: #### C BC ####[facility] [address] [place], [place] [address]Dr. Deven Ge IG % 0.3 % Normal 0.0-0.5 [facility] Comment on above: Performed By: #### C BC ####[facility] [address] [place] [id number]. Deven Ge LYMPH # 2.1 103/ul Normal 1.2-3.8 [facility] Comment on above: Performed By: #### C BC ####[facility] [address] [place] [id number]. Deven Joo Lymphocytes/100 WBC (Bld) 31.2 % Normal 20.5-60.0 [facility] Comment on above: Performed By: #### C BC ####[facility] [address] [place] [id number]. Amairaniana Ge MANUAL DIFF REQ NO Normal [facility] Comment on above: Performed By: #### C BC ####[facility] [address] [place] [id number]. Deven Joo MCH (RBC) [Entitic mass] 31.2 pg Normal 26.7-34.0 [facility] Comment on above: Performed By: #### C BC ####[facility] [address] [place] [id number]. Deven Ge MCHC (RBC) [Mass/Vol] 32.9 g/dL Normal 29.9-35.2 [facility] Comment on above: Performed By: #### C BC ####[facility] [address] [place] [id number]. Deven Joo MCV (RBC) [Entitic vol] 94.9 fL Normal 81.0-99.0 [facility] Comment on above: Performed By: #### C BC ####[facility] [address] [place] [id number]. Deven Ge MONO # 0.5 103/ul Normal 0.3-0.8 [facility] Comment on above: Performed By: #### C BC ####[facility] [address] [place] [address]Dr. Deven Joo Monocytes/100 WBC (Bld) 6.6 % Normal 1.7-12.0 [facility] Comment on above: Performed By: #### C BC ####[facility] [address] [place] [address]Dr. Amairaniana Ge NEUT # 4.1 103/ul Normal 1.4-6.5 [facility] Comment on above: Performed By: #### C BC ####[facility] [address] [place] [id number]. Deven Ge Neutrophils/100 WBC (Bld) 59.6 % Normal 43.0-75.0 [facility] Comment on above: Performed By: #### C BC ####[facility] [address] [place] [id number]. Deven Ge Platelet mean volume (Bld) [Entitic vol] 10.7 fL Normal 9.5-13.5 [facility] Comment on above: Performed By: #### C BC ####[facility] [address] [place] [address]Dr. Deven Ge PLT 308 103/ul Normal 150-450 [facility] Comment on above: Performed By: #### C BC ####[facility] [address] [place] [id number]. Deven Ge RBC 4.29 106/ul Normal 4.20-5.40 [facility] Comment on above: Performed By: #### C BC ####[facility] [address] [place] [id number]. Deven Ge WBC 6.9 103/ul Normal 4.0-11.0 [facility] Comment on above: Performed By: #### C BC ####[facility] [address] [place] [id number] Ge GLYCOHEMOGLOBIN A1Con 2021 ADA RECOMMENDATION SEE BELOW Normal [facility] Comment on above: Result Comment: ADA RECOMMENDED LIMIT 4.0 - 6.0 ADA THERAPEUTIC TARGET < 7.0 ACTION SUGGESTED > 7.0 Performed By: #### A 1C #### [facility] [address] [place], [place] [address] Dr. Deven Ge Glucose [Mass/Vol] 111 mg/dL Normal [facility] Comment on above: Performed By: #### A 1C #### [facility] [address] [place] [address] [address] Deven Ge HbA1c (Bld) [Mass fraction] 5.5 % Normal 4.5-6.2 [facility] Comment on above: Performed By: #### A 1C #### [facility] [address] [place] [address] [address] Deven Ge IRONon 03-18-2022 Iron [Mass/Vol] 111.0 ug/dL Normal 50.0-170.0 [facility] Comment on above: Performed By: #### I SHAWN #### [facility] [address] [place] [address] [address] Deven Ge LIPID PROFILEon 03-18-2022 CHOL-HDL RATIO NORM SEE BELOW Normal [facility] Comment on above: Result Comment: 3.3 - 4.4 LOW RISK 4.4 - 7.1 AVERAGE RISK 7.1 - 11.0 MODERATE RISK >11.0 HIGH RISK Performed By: #### L IPID, CMP, TSH #### [facility] [address] [place] [address] [address] Deven Ge Cholesterol [Mass/Vol] 220 mg/dL Critically high <=200 [facility] Comment on above: Performed By: #### L IPID, CMP, TSH #### [facility] [address] [place] [address] [address] Deven Ge Cholesterol in HDL [Mass/Vol] 61 mg/dL Critically high 40-60 [facility] Comment on above: Performed By: #### L IPID, CMP, TSH #### [facility] [address] [place] [address] [address] Deven Ge Cholesterol in LDL [Mass/Vol] 132.2 mg/dL Normal [facility] Comment on above: Performed By: #### L IPID, CMP, TSH #### [facility] [address] [place] [address] [address] Deven Ge Cholesterol.total/Cho lesterol in HDL [Mass ratio] 3.6 {ratio} Normal [facility] Comment on above: Performed By: #### L IPID, CMP, TSH #### [facility] [address] [place] [address] [address] Deven Ge HDL NORMAL > or = 60 mg/dl - LO W CARDIOVASCULAR RISK <40 mg/dl - HIGH CARDIOVASCULAR RISK Normal [facility] Comment on above: Performed By: #### L IPID, CMP, TSH #### [facility] [address] [place] [address] [address] Deven Ge LDL CALC NORMAL SEE BELOW Normal [facility] Comment on above: Result Comment: <100 mg/dl OPTIMAL 100 - 129 mg/dl NEAR OR ABOVE OPTIMAL 130 - 159 mg/dl BORDERLINE HIGH 160 - 189 mg/dl HIGH >190 mg/dl VERY HIGH Performed By: #### L IPID, CMP, TSH #### [facility] [address] [place] [address] [address] Deven Ge Triglyceride [Mass/Vol] 134 mg/dL Normal <=150 [facility] Comment on above: Performed By: #### L IPID, CMP, TSH #### [facility] [address] [place] [address] [address] Deven Ge VLDL CALC 26.8 mg/dL Normal [facility] Comment on above: Performed By: #### L IPID, CMP, TSH #### [facility] [address] [place] [address] [address] Deven Ge MG MAMM SCREEN 3D CHRISTIANO CADon 03-18-2022 MG MAMM SCREEN 3D CHRISTIANO CAD Patient: ASAEL COONEY Exam Date: 03/18/2022 : 1945 Gender:F Ordering : DR SUMAN HUSTON . Admission #: [id number] Family : Order #: [id number] CLICK HERE TO VIEW EXAM RADIOLOGY REPORT [...] colon cancer at age 34. LOCATION: [facility] BREAST COMPOSITION: Heterogeneously dense,which may obscure [...] Montez M.D. on 03/18/2022 at 14:52 Normal [facility] PROF 14(COMP METB)on 022 Albumin [Mass/Vol] 3.6 g/dL Normal 3.4-5.0 [facility] Comment on above: Performed By: #### L IPID, CMP, TSH #### [facility] [address] [place] [address] [address] Deven Ge Albumin/Globulin [Mass ratio] 1.0 {ratio} Normal [facility] Comment on above: Performed By: #### L IPID, CMP, TSH #### [facility] [address] [place] [address] [address] Deven Ge ALP [Catalytic activity/Vol] 69 U/L Normal 46-116 [facility] Comment on above: Performed By: #### L IPID, CMP, TSH #### [facility] [address] [place] [address] [address] Deven Ge ALT [Catalytic activity/Vol] 24 U/L Normal 14-59 [facility] Comment on above: Performed By: #### L IPID, CMP, TSH #### [facility] [address] [place] [address] [address] Deven Ge Anion gap [Moles/Vol] 11.2 mmol/L Normal [facility] Comment on above: Performed By: #### L IPID, CMP, TSH #### [facility] [address] [place] [address] [address] Deven Ge AST [Catalytic activity/Vol] 13 U/L Critically low 15-37 [facility] Comment on above: Performed By: #### L IPID, CMP, TSH #### [facility] [address] [place] [address] [address] Deven Ge Bilirubin [Mass/Vol] 0.4 mg/dL Normal 0.2-1.0 [facility] Comment on above: Performed By: #### L IPID, CMP, TSH #### [facility] [address] [place] [address] [address] Deven Ge Calcium [Mass/Vol] 9.0 mg/dL Normal 8.5-10.1 [facility] Comment on above: Performed By: #### L IPID, CMP, TSH #### [facility] [address] [place] [address] [address] Deven Ge Chloride [Moles/Vol] 104 mmol/L Normal 98-107 [facility] Comment on above: Performed By: #### L IPID, CMP, TSH #### [facility] [address] [place] [address] [address] Deven Ge CO2 [Moles/Vol] 31.0 mmol/L Normal 21.0-32.0 [facility] Comment on above: Performed By: #### L IPID, CMP, TSH #### [facility] [address] [place] [address] [address] Deven Ge Creatinine [Mass/Vol] 0.87 mg/dL Normal 0.55-1.02 [facility] Comment on above: Performed By: #### L IPID, CMP, TSH #### [facility] [address] [place] [address] [address] Deven Ge EGFR-AF [place]IZ[place] >60 Normal >=60 [facility] Comment on above: Performed By: #### L IPID, CMP, TSH #### [facility] [address] [place] [address] [address] Deven Ge EGFR-NON AF CITIZEN [place] >60 Normal >=60 [facility] Comment on above: Performed By: #### L IPID, CMP, TSH #### [facility] [address] [place] [address] [address] Deven Ge Globulin (S) [Mass/Vol] 3.5 g/dL Normal [facility] Comment on above: Performed By: #### L IPID, CMP, TSH #### [facility] [address] [place] [address] [address] Deven Ge Glucose [Mass/Vol] 117 mg/dL Critically high 74-106 [facility] Comment on above: Performed By: #### L IPID, CMP, TSH #### [facility] [address] [place] [address] [address] Deven Ge Potassium [Moles/Vol] 4.2 mmol/L Normal 3.5-5.1 [facility] Comment on above: Performed By: #### L IPID, CMP, TSH #### [facility] [address] [place] [address] Dr. Deven Ge Protein [Mass/Vol] 7.1 g/dL Normal 6.4-8.2 [facility] Comment on above: Performed By: #### L IPID, CMP, TSH #### [facility] [address] [place] [address] Dr. Deven Ge Sodium [Moles/Vol] 142 mmol/L Normal 136-145 [facility] Comment on above: Performed By: #### L IPID, CMP, TSH #### [facility] [address] [place] [address] Dr. Deven Ge Urea nitrogen [Mass/Vol] 12.0 mg/dL Normal 7.0-18.0 [facility] Comment on above: Performed By: #### L IPID, CMP, TSH #### [facility] [address] [place] [address] Dr. Deven Ge Urea nitrogen/Creatinine [Mass ratio] 13.8 mg/mg Normal [facility] Comment on above: Performed By: #### L IPID, CMP, TSH #### [facility] [address] [place] [address] Dr. Deven Ge TSHon 03-18-2022 TSH 0.703 uIU/mL Normal 0.358-3.740 [facility] Comment on above: Performed By: #### L IPID, CMP, TSH #### [facility] [address] [place] [address] [address] Deven Ge Provider Letter FTon 09-30 Provider Letter [facility] Suman Huston, [address] [facility] [address] [place] [address] Re: ASAEL COONEY Date of : 1945 [...] Sincerely, Pavel Atkins MD General Surgery [facility] Lab Reportson 09-28-2020 Lab Reports [id number] .[id number]:127 [facility] Consent for Procedure/Surger yon 09-21-2020 Consent for Procedure/Surgery [id number] .[id number]:127 [facility] Ambulatory Clinical Summaryo n 09-18-2020 Ambulatory Clinical Summary {[id number]}CD:[id number] [facility] General Surgery Office/Clini c Noteon 09-18-2020 General Surgery Office/Clinic Note HPI Staff 74 year old female on consultation from Dr. Huston for occult positive stool. 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 Last colonoscopy was performed in [address] [facility]. States there is occasional blood [...] Family History Family history is negative [facility] Comment on above: Result Comment: Elec tronically Signed By: LUH CODY, Pavel Weston\Date and Time Signed: 09/18/20 10:04 EST Physician Referralon 021 Physician Referral [id number] .[id number]:127 [facility] Encounters Encounter Date Encounter Type Care Provider Facility Start: 09-21-2022 End: 09-21-[address] SUMAN HUSTON . Facility: Start: 04-13-2022 End: 04-14-[address] SUMAN HUSTON . Facility:[facility] Start: 03-18-2022 End: 03-19-[address] SUMAN HUSTON . Facility:[facility] Payers Date Payer Category Payer Medicare [id number] 1958 Private Health Insurance CAP [id number] 1945 Unknown [id number] 2.16.84 [id number] 1945 Unknown [id number] 2.16.84 [id number] 1945 Unknown [id number] 2.16.84 [id number] Summary Purpose Family History No Family History Records FoundNo Family History Records Found Advance Directives No Advanced Directives Records FoundNo Advanced Directives Records Found Additional Source Comments INFORMATION SOURCE (unrecogn ized section and content) DATE CREATED AUTHOR 10/08/2020 [facility] DATE CREATED AUTHOR AUTHOR'S ORGANIZ ATION 09/27/2022 [facility] FOR RECORDS PERTAINING TO PATIENTS WHO ARE [...] BE BASED ON THE PRIMARY CLINICAL RECORDS. [facility]. provides no warranty or guarantee of the accuracy or completeness of information in this document.
== END 2025-03-12 14:13 | disposition home or self-care (01) ==
LOC: LAB 14:12
PROVIDERS: PCP Family Medicine; Visit Provider Family Medicine
DX: E55.9 Vitamin D deficiency, unspecified (principal); R53.83 Other fatigue; R78.5 Finding of other psychotropic drug in blood; Z12.11 Encounter for screening for malignant neoplasm of colon; E03.9 Hypothyroidism, unspecified
CPT/HCPCS: G0328

== ENCOUNTER 2025-04-30 11:58 | Outpatient (OUT) | payer MEDICARE, SELFPAY ==
--- OUTSIDE RECORDS SUMMARY | 2025-04-30 12:03 | XMS_ITS | CCD ---
Author Organization [facility] Care Team Providers Care Planning And Analysis Manager Name Role Phone NICHOLAS Silva, DR WILL Primary Care Unavailable BITA, DR ANETTE Mendez Attending Unavailable BITA, DR ANETTE Mendez Admitting Unavailable BITA, DR ANETTE Mendez Consulting Unavailable AARON VICENTE Unavailable NICHOLAS ., DR WILL Admitting Unavailable NICHOLAS ., DR WILL Primary Care Unavailable HOY ., DR WILL Consulting Unavailable HOY ., DR WILL Attending Unavailable HOY ., DR WILL Admitting Unavailable COLLINY ., DR WILL Primary Care Unavailable HOY ., DR WILL Consulting Unavailable COLLINY ., DR WILL Attending Unavailable DESIREE, DR DENIS Mendez Consulting Unavailable Pavel ARVIZU Attending Unavailable Suman Peterson Referring Unavailable Allergies Allergy Classification Reported Allergen(s) Allergy Type Date of Onset Reaction(s) Facility (1 source) Adhesive bandage Drug allergy (disorder) [facility] Repository (2 sources) meloxicam; 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: [Mobic] Drug Allergy [facility] Repository Problems Active Problems Problem Classification [...] Onset: 03-21-2022 Episodic Other aftercare (1 source) nursing home (current) use of aspirin; 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: [DETENTION CURRENT USE OF ASPIRIN] Onset: 04-15-2022 Episodic Other aftercare (1 source) 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) drug therapy; 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: [OTH DETENTION CURRENT DRUG THERAPY] Onset: 04-15-2022 Episodic Other [...] Test Name Value Interpretation Reference Range Facility Ambulatory Visit Summaryon 1 Ambulatory Visit Summary Ambulatory Visit Summary ASAEL HERNANDES :1945 Visit Date:04/29/2025 Ambulatory Visit Instructions Your Diagnosis Personal history of colon cancer Personal history of adenomatous and serrated colon polyps Your Care Team Attending Physician - Pavel ARVIZU MD Primary Care Physician - Suman Peterson MD Referring Physician - Suman Peterson MD This Is Your Medications List Contact prescribing physician if questions or concerns aspirin (aspirin 81 mg Oral EC Tab) calcium-vitamin D (Caltrate 600 + D oral tablet) diclofenac (diclofenac sodium 75 mg Oral EC Tab) ergocalciferol (Vitamin D2 2000 intl units oral capsule) esomeprazole (Nexium 40 mg Cap-EC) levothyroxine (Synthroid 100 mcg Tab) liothyronine (Cytomel 5 mcg Tab) multivitamin with minerals (PreserVision AREDS) multivitamin with minerals (PreserVision AREDS) nebivolol (Bystolic 20 mg oral tablet) ocular lubricant (Refresh Dry Eye Therapy) Procedures Performed Colonoscopy (08/24/2016), Partial resection of colon (07/24/2007), Abdominal hysterectomy, Appendectomy, Cardiac catheterization, Colonoscopy, Tonsillectomy. Discharge Vitals Heart Rate (Peripheral) 64 Respiratory Rate 20 Blood Pressure 138/88 Height 165 cm Height 65 in Weight 115.6 kg Weight 254.854 lb BMI 42.46 Medications What How Much When Instructions Unchanged aspirin (aspirin 81 mg Oral EC Tab) 1 Tablets By Mouth Every day Contact prescribing physician if questions or concerns Unchanged calcium-vitamin D (Caltrate 600 + D oral tablet) 1 Tablets By Mouth 2 times a day Contact prescribing physician if questions or concerns Unchanged diclofenac (diclofenac sodium 75 mg Oral EC Tab) 1 Tablets By Mouth 2 times a day Contact prescribing physician if questions or concerns Unchanged ergocalciferol (Vitamin D2 2000 intl units oral capsule) 1 Capsules By Mouth Every day Contact prescribing physician if questions or concerns Unchanged esomeprazole (Nexium 40 mg Cap-EC) 1 Capsules By Mouth Every day Contact prescribing physician if questions or concerns Unchanged levothyroxine (Synthroid 100 mcg Tab) 1 Tablets By Mouth Every day Contact prescribing physician if questions or concerns Unchanged liothyronine (Cytomel 5 mcg Tab) 1 Tablets By Mouth Every day Contact prescribing physician if questions or concerns Unchanged multivitamin with minerals (PreserVision AREDS) 1 Tablets By Mouth 2 times a day Contact prescribing physician if questions or concerns Unchanged multivitamin with minerals (PreserVision AREDS) 1 Tablets By Mouth 2 times a day Contact prescribing physician if questions or concerns Unchanged nebivolol (Bystolic 20 mg oral tablet) 1 Tablets By Mouth Every day Contact prescribing physician if questions or concerns Unchanged ocular lubricant (Refresh Dry Eye Therapy) 1 Drops Both eyes Every day Contact prescribing physician if questions or concerns Allergies No Known Allergies No Known Medication Allergies Problems Ongoing - Any problem that you are currently receiving treatment for. BMI 40.0-44.9, adult Chronic GERD Diverticulosis Eczema HTN (hypertension) Hyperlipidemia Hypothyroidism Irritable bowel Macular degeneration Morbid obesity with BMI of 40.0-44.9, adult Personal history of adenomatous and serrated colon polyps Personal history of colon cancer Personal history of colonic polyps Positive occult stool blood test Patient Survey You may receive a survey via text or e-mail asking about your office visit. Please share your experience with us by completing your survey. We appreciate your feedback and thank you for choosing us for your care. Patient Portal You may access all of your results and other medical record information on our secure patient portal. If you are not signed up for this yet, please contact Health Information Management at [phone] to get signed up today. Language Information Language assistance services are available as needed. Normal [facility] Covid-19 PCR (CVDTBH)on SARS-CoV-2 (COVID-19) RNA HONORIO+probe Ql (Unsp spec) Detected Abnormal NOT DETECTED [facility] Comment on above: Result Comment: This test is not yet approved or cleared by the [place] FDA. When there are no FDA-approved or cleared tests available, and other criteria are met, FDA can make tests available under an emergency access mechanism called an Emergency Use Authorization (EUA). The EUA for this test is supported by the [place] of Health and Human Service's declaration that [...] used). Performed By: #### C [facility] #### [facility] [address] [place] [address] HEAD WO CONon [...] AARON VICENTE Date: 2022-04-13 22:58 Normal [facility] INSULINon 03-19-2022 Insulin 17.5 uIU/mL Normal 2.6-24.9 [facility] Comment on above: Performed By: #### I NSULIN #### [facility] [address] [address] [address] Deven Ge T4, T3U, FTI LABCORPon 03-19 Free Thyroxine Index 2.2 Normal 1.2-4.9 [facility] Comment on above: Performed By: #### T HYLC #### [facility] [address] [address] [address] Deven Ge T3 Uptake 27 % Normal 24-39 [facility] Comment on above: Performed By: #### T HYLC #### [facility] [address] [address] [address] Deven Ge T4 [Mass/Vol] 8.2 ug/dL Normal 4.5-12.0 [facility] [place] Comment on above: Performed By: #### T HYLC #### [facility] [address] [address] [address] Deven Ge CBC AUTO DIFFon 03-18-2022 BASO # 0.0 103/ul Normal 0.0-0.1 [facility] Comment on above: Performed By: #### C BC ####[facility] [address] [address]DrRicardo Ge Basophils/100 WBC (Bld) 0.4 % Normal 0.2-2.0 [facility] Comment on above: Performed By: #### C BC ####[facility] [address] [id number]. Deven Ge EO # 0.1 103/ul Normal 0.0-0.7 [facility] Comment on above: Performed By: #### C BC ####[facility] [address] [id number]. Deven Ge Eosinophils/100 WBC (Bld) 1.9 % Normal 0.9-7.0 [facility] Comment on above: Performed By: #### C BC ####[facility] [address] [address]Dr. Deven Ge Erythrocyte distribution width (RBC) [Ratio] 12.6 % Normal 11.0-15.0 [facility] Comment on above: Performed By: #### C BC ####[facility] [address] [place], [place] [address]Dr. Deven Ge Hematocrit (Bld) [Volume fraction] 40.7 % Normal 36.0-48.0 [facility] Comment on above: Performed By: #### C BC ####[facility] [address] [place], [place] [address]Dr. Deven Ge Hemoglobin (Bld) [Mass/Vol] 13.4 g/dL Normal 12.0-16.0 [facility] Comment on above: Performed By: #### C BC ####[facility] [address] [place], [place] [address]Dr. Deven Ge IG # 0.02 10e3/ul Normal 0.00-0.03 [facility] Comment on above: Performed By: #### C BC ####[facility] [address] [place], [place] [address]Dr. Deven Ge IG % 0.3 % Normal 0.0-0.5 [facility] Comment on above: Performed By: #### C BC ####[facility] [address] [place], [place] [address]Dr. Deven Ge LYMPH # 2.1 103/ul Normal 1.2-3.8 [facility] Comment on above: Performed By: #### C BC ####[facility] [address] [place], [place] [address]Dr. Deven Ge Lymphocytes/100 WBC (Bld) 31.2 % Normal 20.5-60.0 [facility] Comment on above: Performed By: #### C BC ####[facility] [address] [place], [place] [address]Dr. Deven Joo MANUAL DIFF REQ NO Normal [facility] Comment on above: Performed By: #### C BC ####[facility] [address] [id number]. Deven Joo MCH (RBC) [Entitic mass] 31.2 pg Normal 26.7-34.0 [facility] Comment on above: Performed By: #### C BC ####[facility] [address] [address]Dr. Deven Ge MCHC (RBC) [Mass/Vol] 32.9 g/dL Normal 29.9-35.2 [facility] Comment on above: Performed By: #### C BC ####[facility] [address] [address]Dr. Deven Ge MCV (RBC) [Entitic vol] 94.9 fL Normal 81.0-99.0 [facility] Comment on above: Performed By: #### C BC ####[facility] [address] [place], [place] [address]Dr. Deven Ge MONO # 0.5 103/ul Normal 0.3-0.8 [facility] Comment on above: Performed By: #### C BC ####[facility] [address] [place], [place] [address]Dr. Deven Ge Monocytes/100 WBC (Bld) 6.6 % Normal 1.7-12.0 [facility] Comment on above: Performed By: #### C BC ####[facility] [address] [place], [place] [address]DrRicardo Ge NEUT # 4.1 103/ul Normal 1.4-6.5 [facility] Comment on above: Performed By: #### C BC ####[facility] [address] [place], [place] [address]DrRicardo Ge Neutrophils/100 WBC (Bld) 59.6 % Normal 43.0-75.0 [facility] Comment on above: Performed By: #### C BC ####[facility] [address] [place], [place] [address]DrRicardo Ge Platelet mean volume (Bld) [Entitic vol] 10.7 fL Normal 9.5-13.5 [facility] Comment on above: Performed By: #### C BC ####[facility] [address] [id number]. Deven Ge PLT 308 103/ul Normal 150-450 [facility] Comment on above: Performed By: #### C BC ####[facility] [address] [id number]. Deven Ge RBC 4.29 106/ul Normal 4.20-5.40 [facility] Comment on above: Performed By: #### C BC ####[facility] [address] [id number]. Deven Ge WBC 6.9 103/ul Normal 4.0-11.0 [facility] Comment on above: Performed By: #### C BC ####[facility] [address] [address]Dr. Deven Ge GLYCOHEMOGLOBIN A1Con 2021 ADA RECOMMENDATION SEE BELOW Normal [facility] Comment on above: Result Comment: ADA RECOMMENDED LIMIT 4.0 - 6.0 ADA THERAPEUTIC TARGET < 7.0 ACTION SUGGESTED > 7.0 Performed By: #### A 1C #### [facility] [address] [address] [address] Deven Ge Glucose [Mass/Vol] 111 mg/dL Normal [facility] Comment on above: Performed By: #### A 1C #### [facility] [address] [address] [address] Deven Ge HbA1c (Bld) [Mass fraction] 5.5 % Normal 4.5-6.2 [facility] Comment on above: Performed By: #### A 1C #### [facility] [address] [address] [address] Deven Ge IRONon 03-18-2022 Iron [Mass/Vol] 111.0 ug/dL Normal 50.0-170.0 [facility] Comment on above: Performed By: #### I SHAWN #### [facility] [address] [address] [address] Deven Ge LIPID PROFILEon 03-18-2022 CHOL-HDL RATIO NORM SEE BELOW Normal [facility] Comment on above: Result Comment: 3.3 - 4.4 LOW RISK 4.4 - 7.1 AVERAGE RISK 7.1 - 11.0 MODERATE RISK >11.0 HIGH RISK Performed By: #### L IPID, CMP, TSH #### [facility] [address] [address] [address] Deven Ge Cholesterol [Mass/Vol] 220 mg/dL Critically high <=200 [facility] Comment on above: Performed By: #### L IPID, CMP, TSH #### [facility] [address] [address] [address] Deven Ge Cholesterol in HDL [Mass/Vol] 61 mg/dL Critically high 40-60 [facility] Comment on above: Performed By: #### L IPID, CMP, TSH #### [facility] [address] [place] [address] Dr. Deven Ge Cholesterol in LDL [Mass/Vol] 132.2 mg/dL Normal [facility] Comment on above: Performed By: #### L IPID, CMP, TSH #### [facility] [address] [address] [address] Deven Ge Cholesterol.total/Cho lesterol in HDL [Mass ratio] 3.6 {ratio} Normal [facility] Comment on above: Performed By: #### L IPID, CMP, TSH #### [facility] [address] [address] [address] Deven Ge HDL NORMAL > or = 60 mg/dl - LO W CARDIOVASCULAR RISK <40 mg/dl - HIGH CARDIOVASCULAR RISK Normal [facility] Comment on above: Performed By: #### L IPID, CMP, TSH #### [facility] [address] [place] [address] Dr. Deven Ge LDL CALC NORMAL SEE BELOW Normal [facility] Comment on above: Result Comment: <100 mg/dl OPTIMAL 100 - 129 mg/dl NEAR OR ABOVE OPTIMAL 130 - 159 mg/dl BORDERLINE HIGH 160 - 189 mg/dl HIGH >190 mg/dl VERY HIGH Performed By: #### L IPID, CMP, TSH #### [facility] [address] [place], [place] [address] Dr. Deven Ge Triglyceride [Mass/Vol] 134 mg/dL Normal <=150 [facility] Comment on above: Performed By: #### L IPID, CMP, TSH #### [facility] [address] [place], [place] [address] Dr. Deven Ge VLDL CALC 26.8 mg/dL Normal [facility] Comment on above: Performed By: #### L IPID, CMP, TSH #### [facility] [address] [place], [place] [address] Dr. Deven Ge MG MAMM SCREEN 3D CHRISTIANO CADon 03-18-2022 MG MAMM SCREEN 3D CHRISTIANO CAD Patient: SAAEL HERNANDES Exam Date: 03/18/2022 : 1945 Gender:F Ordering : DR SUMAN PETERSON . Admission #: [id number] Family : Order #: [id number] CLICK HERE TO VIEW EXAM RADIOLOGY REPORT [...] colon cancer at age 34. LOCATION: [facility] BREAST COMPOSITION: Heterogeneously dense,which may obscure [...] Montez M.D. on 03/18/2022 at 14:52 Normal [facility] PROF 14(COMP METB)on 022 Albumin [Mass/Vol] 3.6 g/dL Normal 3.4-5.0 [facility] Comment on above: Performed By: #### L IPID, CMP, TSH #### [facility] [address] [address] [address] Deven Ge Albumin/Globulin [Mass ratio] 1.0 {ratio} Normal [facility] Comment on above: Performed By: #### L IPID, CMP, TSH #### [facility] [address] [address] [address] Deven Ge ALP [Catalytic activity/Vol] 69 U/L Normal 46-116 [facility] Comment on above: Performed By: #### L IPID, CMP, TSH #### [facility] [address] [address] [address] Deven Ge ALT [Catalytic activity/Vol] 24 U/L Normal 14-59 [facility] Comment on above: Performed By: #### L IPID, CMP, TSH #### [facility] [address] [address] [address] Deven Ge Anion gap [Moles/Vol] 11.2 mmol/L Normal [facility] Comment on above: Performed By: #### L IPID, CMP, TSH #### [facility] [address] [address] [address] Deven Ge AST [Catalytic activity/Vol] 13 U/L Critically low 15-37 [facility] Comment on above: Performed By: #### L IPID, CMP, TSH #### [facility] [address] [address] [address] Deven Ge Bilirubin [Mass/Vol] 0.4 mg/dL Normal 0.2-1.0 [facility] Comment on above: Performed By: #### L IPID, CMP, TSH #### [facility] [address] [address] [address] Deven Ge Calcium [Mass/Vol] 9.0 mg/dL Normal 8.5-10.1 [facility] Comment on above: Performed By: #### L IPID, CMP, TSH #### [facility] [address] [place] [address] Dr. Deven Ge Chloride [Moles/Vol] 104 mmol/L Normal 98-107 [facility] Comment on above: Performed By: #### L IPID, CMP, TSH #### [facility] [address] [place] [address] Dr. Deven Ge CO2 [Moles/Vol] 31.0 mmol/L Normal 21.0-32.0 [facility] Comment on above: Performed By: #### L IPID, CMP, TSH #### [facility] [address] [place] [address] Dr. Deven Ge Creatinine [Mass/Vol] 0.87 mg/dL Normal 0.55-1.02 [facility] Comment on above: Performed By: #### L IPID, CMP, TSH #### [facility] [address] [place] [address] Dr. Deven Ge EGFR-AF MACANESE >60 Normal >=60 [facility] Comment on above: Performed By: #### L IPID, CMP, TSH #### [facility] [address] [place] [address] Dr. Deven Ge EGFR-NON AF MACANESE >60 Normal >=60 [facility] Comment on above: Performed By: #### L IPID, CMP, TSH #### [facility] [address] [place] [address] Dr. Deven Ge Globulin (S) [Mass/Vol] 3.5 g/dL Normal [facility] Comment on above: Performed By: #### L IPID, CMP, TSH #### [facility] [address] [place] [address] Dr. Deven Ge Glucose [Mass/Vol] 117 mg/dL Critically high 74-106 [facility] Comment on above: Performed By: #### L IPID, CMP, TSH #### [facility] [address] [place] [address] Dr. Deven Ge Potassium [Moles/Vol] 4.2 mmol/L Normal 3.5-5.1 [facility] Comment on above: Performed By: #### L IPID, CMP, TSH #### [facility] [address] [address] [address] Deven Ge Protein [Mass/Vol] 7.1 g/dL Normal 6.4-8.2 [facility] Comment on above: Performed By: #### L IPID, CMP, TSH #### [facility] [address] [address] [address] Deven Ge Sodium [Moles/Vol] 142 mmol/L Normal 136-145 [facility] Comment on above: Performed By: #### L IPID, CMP, TSH #### [facility] [address] [place] [address] Dr. Deven Ge Urea nitrogen [Mass/Vol] 12.0 mg/dL Normal 7.0-18.0 [facility] Comment on above: Performed By: #### L IPID, CMP, TSH #### [facility] [address] [address] [address] Deven Ge Urea nitrogen/Creatinine [Mass ratio] 13.8 mg/mg Normal [facility] Comment on above: Performed By: #### L IPID, CMP, TSH #### [facility] [address] [place] [address] Dr. Deven Ge TSHon 03-18-2022 TSH 0.703 uIU/mL Normal 0.358-3.740 [facility] [place] Comment on above: Performed By: #### L IPID, CMP, TSH #### [facility] [address] [place] [address] Dr. Deven Ge Encounters Encounter Date Encounter Type Care Provider Facility Start: 04-29-2025 End: 04-29-2025 ambulatory Pavel ARVIZU Facility:[facility] Start: 09-21-2022 End: 09-21-[address] SUMAN PETERSON . Facility: Start: 04-13-2022 End: 04-14-[address] SUMAN PETERSON . Facility:[facility] Start: 03-18-2022 End: 03-19-[address] SUMAN PETERSON . Facility: Payers Date Payer Category Payer Private Health Insurance [id number] 1958 Medicare [id number] 1958 Private Health Insurance CAP [id number] 1945 Unknown [id number] [id number] [id number] 1945 Unknown [id number] [id number] [id number] 1945 Unknown [id number] [id number] [id number] 1945 Unknown [id number] [id number] Clinical Note 04-29-2025 Note Date & Type Note Facility 04-29-2025 Note General Surgery Offi ce/Clinic Note Chief Complaint consultation for positive occult stool HPI Staff 79 year old female presents on consultation from Dr. Peterson for positive occult stool. Denies abdominal or rectal pain. Reports longstanding history of intermittent rectal bleeding when straining for bowel movements. Denies change in bowel habits. Denies nausea, vomiting or weight loss. Last colonoscopy completed 08/2016- normal. History of colon cancer in 2007; colectomy completed 03/2008. Daughter with history of colon cancer age 36. History of Present Illness 79 yo female with h/o htn, hyperlipidemia, hypothyroidism, GERD, eczema, macular degeneration, referred for positive fecal occult blood test; patient has h/o colon cancer, s/p sigmoid colectomy in 2007; last colonoscopy 2016, wnl; also h/o colon polyps in the past; had f/u colonoscopy scheduled in 2020, but cancelled, possible due to mild episode of COVID, patient unsure; denies change in bms or blood in stools, no abd complaints; abd operations significant for appendectomy, hysterectomy and sigmoid colectomy; on baby asa and Diclofenac daily; no tobacco use; fmhx of colon cancer in patient's daughter, dx at age 36; no fmhx of IBD. Review of Systems PHQ Score Initial Depression Screen Score: 0 SCORE ROS - Provider Constitutional: no fever, no sweats, no weight loss. Eyes: yes glasses, no blurred vision, no visual loss. ENMT: no dentures, no hoarseness, no swallowing difficulties, no hearing loss, no ear infection(s), no nose bleeds. Cardiovascular: normal blood pressure, no chest pain, regular heartbeat, [...] or noncontributory. Physical Exam Vitals & Measurements HR: 64(Peripheral) RR: 20 BP: 138/88 HT: 165 cm HT: 65 in WT: 115.6 kg WT: 254.854 lb BMI: 42.46 HEENT: normal conjunctiva, sclera clear, no scleral icterus, EOM intact, PERRLA, oral mucosa moist without lesions. Neck: trachea midline, no mass, symmetric, no thyromegaly or nodules, no adenopathy Respiratory: lungs CTA, respirations non labored. Cardiovascular: regular rate and rhythm, no murmur, no pedal edema or varicosities. Gastrointestinal: obese, soft, non distended, no tenderness, no masses, no palpable hernias, diastasis recti no, no hepatosplenomegaly; normal bs Musculoskeletal: normal gait, digits and nails without infection, nodes, cyanosis, clubbing. Skin: no rashes, no lesions, no ulcers, no subcutaneous nodules, induration. Psychiatric/Neuro: oriented to time, place, person, judgement normal, affect appropriate for age, insight intact, no focal deficits. Tests: labs reviewed, review of old records completed , Discussed surgical options, risks, and possible complications with patient. Assessment/Plan 1. Personal history of colon cancer (Z85.038: Personal history of other malignant neoplasm of large intestine) plan colonoscopy under anesthesia, informed consent obtained. 2. Personal history of adenomatous and serrated colon polyps (Z86.0101: Personal history of adenomatous and serrated colon polyps) see # 1 Follow-up No qualifying data available Problem List/Past Medical History Ongoing BMI 40.0-44.9, adult Chronic GERD Diverticulosis Eczema HTN (hypertension) Hyperlipidemia Hypothyroidism Irritable bowel Macular degeneration Morbid obesity with BMI of 40.0-44.9, adult Personal history of adenomatous and serrated colon polyps Personal history of colon cancer Personal history of colonic polyps Positive occult stool blood test Historical No qualifying data Procedure/Surgical History Colonoscopy (08/24/2016), Partial resection of colon (07/24/2007), Abdominal hysterectomy, Appendectomy, Cardiac catheterization, Colonoscopy, Tonsillectomy. Medications aspirin 81 mg Oral EC Tab, 81 mg= 1 tab(s), Oral, Daily Bystolic 20 mg oral tablet, 20 mg= 1 tab(s), Oral, Daily Caltrate 600 + D oral tablet, 1 tab(s), Oral, BID Cytomel 5 mcg Tab, 5 mcg= 1 tab(s), Oral, Daily diclofenac sodium 75 mg Oral EC Tab, 75 mg= 1 tab(s), Oral, BID Nexium 40 mg Cap-EC, 40 mg= 1 cap(s), Oral, Daily PreserVision AREDS, 1 tab(s), Oral, BID PreserVision AREDS, 1 tab(s), Oral, BID R (more content not included)... [facility] Comment on above: Result Comment: Elec tronically Signed By: LUH CODY, Pavel Mendez\cristy\Date and Time Signed: 04/29/25 15:06 EDT Summary Purpose Family History No Family History Records FoundNo Family History Records Found Advance Directives No Advanced Directives Records FoundNo Advanced Directives Records Found Additional Source Comments INFORMATION SOURCE (unrecogn ized section and content) DATE CREATED AUTHOR 09/27/2022 [facility] DATE CREATED AUTHOR AUTHOR'S ORGANIZ ATION 04/30/2025 [facility] FOR RECORDS PERTAINING TO PATIENTS WHO [...] BE BASED ON THE PRIMARY CLINICAL RECORDS. [facility]. provides no warranty or guarantee of the accuracy or completeness of information in this document.
[2025-04-30 12:54] LABS: Free T3 2.63 pg/mL (2.18-3.98); Thyroid Stimulating Hormone 0.140 uIU/mL (0.358-3.740)
== END 2025-04-30 11:59 | disposition home or self-care (01) ==
LOC: LAB 12:00
PROVIDERS: PCP Family Medicine; Visit Provider Family Medicine
DX: E03.9 Hypothyroidism, unspecified (principal)
CPT/HCPCS: 36415; 84436; 84443; 84481

== ENCOUNTER 2025-05-13 11:01 | Outpatient (OUT) | payer MEDICARE, SELFPAY ==
--- OUTSIDE RECORDS SUMMARY | 2025-04-30 07:53 | XMS_ITS ---
Author Organization [facility] Address [address] [place] [address] Care Team Providers Care Photoflash Powder Mixer Name Role Phone Chapito Huston Primary Care Provider [phone] REASON FOR VISIT Thyroid repeat labs Encounters Encounter Location Date Provider Diagnosis [facility] [address] [place] [address] 04/30/2025 Chapito Huston Hypothyroidism, unspecified E03.9 Assessments Encounter Date Diagnosis (ICD Code) Assessment Notes Treatment Notes Treatment Clinical Notes Section Notes 04/30/2025 Hypothyroidism, unspecified (ICD -10 - E03.9) Plan Of Treatment Pending Test Test Name Order Date THYROID PANEL (T4/TSH/FREE T3) Next Appt Details Provider Name:Chapito Huston, 01:30:00 PM, [address] [place], [address], Progress Notes * Chana HERNANDESDOB:1945 (79 yo F)Acc No.[id number]:04/30/2025 Patient:?Chana HERNANDES :1945???Age:79 Y???Sex:FemalePhone:[phone] Address:[address] [address] Subjective: * Chief Complaints: * T hyroid repeat labs * Medical History: * Surgical History: * Hospitalization/Major Diagno stic Procedure: * Medications: Objective: * Vitals: * Physical Examination: ??? Assessment: * Assessment: 1.?Hypothyroidism, unspecified - E03.9 (Primary)??? Plan: * Treatment: ?LAB: THYROID PANEL (T4/TSH/FREE T3) * Procedure Codes: * true * Date:?Generated for Printing/Faxing/eTransmitting on:?05/13/2025 11:05 AM EDT
--- OUTSIDE RECORDS SUMMARY | 2025-05-13 11:05 | XMS_ITS | Clinical Summary ---
Author Organization [facility] Address [address] [place] [address] Care Team Providers Care Calibrator Barometers Name Role Phone Unavailable Primary Care Provider Unavailabl e Social History Tobacco UseTypesPacks/DayYears UsedDateSmoking Tobacco: Never Assessed CommentsUnknownSex and Gender InformationValueDate RecordedSex Assigned at Not on fileLegal AdwBadfkr43/15/2023 7:40 PM EDTGender IdentityNot on fileSexual OrientationNot on file Plan of Treatment Not on file
--- OUTSIDE RECORDS SUMMARY | 2025-05-13 11:05 | XMS_ITS | Patient Health Record ---
Author Organization [facility] [place] Address [address] [place] [address] Care Team Providers Care Smoke Tester Name Role Phone Karloearlene Chapito Primary Care Provider Allergies No Known Allergies Results Component Value Reference Range Notes CBC AUTO DIFF Reviewed date:03/11/2025 07:48:19 PM Interpretation: Performing Lab: Notes/Report: [facility] , White Blood Count 9.4 4.0-11.0 10 3/uL Red Blood Count4.314.20-5.40 10 6/uTRpitwmvmda07.712.0-16.0 g/tJEsayhpdczd31.7 36.0-48.0 %Mean Corpuscular Pdrofj15.481.0-99.0 fLMean Corpuscular Hemoglobin 31.826.7-34.0 pgMean Corpuscular HGB Conc33.729.9-35.2 g/dLRed Cell Distribution Width12.511.0-15.0 %Platelet Cehae426440-001 10 3/uLMean Platelet Tnalvb60.49.5- 13.5 fLNeutrophils Percent Auto65.343.0-75.0 %Lymphocytes Percent Auto25.720.5- 60.0 %Monocytes Percent Auto5.51.7-12.0 %Eosinophils Percent Auto2.90.9-7.0 % Basophils Percent Auto0.20.2-2.0 %Immature Granulocytes Pct Auto0.40.0-0.5 % Neutrophils Absolute Auto6.21.4-6.5 10 3/uLLymphocytes Absolute Auto2.41.2-3.8 10 3/uLMonocytes Absolute Auto0.50.3-0.8 10 3/uLEosinophils Absolute Auto0.30.0- 0.7 10 3/uLBasophils Absolute Auto0.00.0-0.1 10 3/uLImmature Granulocytes Abs Auto0.040.00-0.03 10 3/uLPerforming Lab:see noteML - [facility] LB LIPID PROFILE Reviewed date:03/11/2025 07:48:19 PM Interpretation: Performing Lab: Notes/Report: [facility] ,Otowrtoowclmn741<=150 mg/mHTxtkbhoyrnz613<=200 mg/dLHDL Fvctbfqgfco0373-75 mg/dL > or =60 mg/dl - LOW CARDIOVASCULAR RISK <40 mg/dl - HIGH CARDIOVASCULAR RISK LDL Cholesterol Ruwufflicr770.0 130-159 mg/dl BORDERLINE HIGH 160-189 mg/dl HIGH >190 mg/dl VERY HIGH 100-129 mg/dl NEAR OR ABOVE OPTIMAL <100 mg/dl OPTIMAL VLDL AJOCVPKAFPD94.4Chol HDL Ratio3.6 >11.0 HIGH RISK 3.3 - 4.4 LOW RISK 4.4 - 7.1 AVERAGE RISK 7.1 - 11.0 MODERATE RISK Performing Lab:see noteML - [facility] LBPROF 14(COMP METB) Reviewed date:03/11/2025 07:48:19 PM Interpretation: Performing Lab: Notes/Report: [facility] ,Wezxrk897584-957 mmol/LPotassium4.13.5-5.1 mmol/VLmedsqbn08667-589 mmol/LCarbon Nuxkben23.221.0-32.0 mmol/LAnion Gap12.7Brkgeww14412-274 mg/dLBlood Urea Zjvftfcs15.07.0-18.0 mg/dLCreatinine0.810.55-1.02 mg/dLEstimated GFR ( Viola>60>=60 mL/min/1.73m 2Estimated GFR (Non- Ursula>60>=60 mL/min/1.73m 2BUN Creatinine Ratio12.4Fgnnivx9.08.5-10.1 mg/dLBilirubin Total0.40.2-1.0 mg/dL Aspartate Amino Ocirbdvpuch3794-68 U/LAlanine Stqduqvzekqlhfqu8938-93 U/L Alkaline Ikyhvxxesxn9513-016 U/LTotal Protein7.26.4-8.2 g/dLAlbumin Level3.43.4- 5.0 g/dLGlobulin3.8Albumin Globulin Ratio0.9Performing Lab:[facility] Reviewed date:03/11/2025 07:48:19 PM Interpretation: Performing Lab: Notes/Report: [facility] ,Free T32.112.18-3.98 pg/mLPerforming Lab:see note - [facility] T4 Reviewed date:03/11/2025 07:48:19 PM Interpretation: Performing Lab: Notes/Report: [facility] ,T4 Thyroxine7.804.80-13.90 ug/dLPerforming Lab:[facility] Reviewed date:03/11/2025 07:48:19 PM Interpretation: Performing Lab: Notes/Report: [facility] ,Thyroid Stimulating Hormone0.8770.358-3.740 uIU/mLPerforming Lab:see [facility]IT[facility]IN D 25 [place] Reviewed date:03/11/2025 07:48:19 PM Interpretation: Performing Lab: Notes/Report: [facility] ,Vitamin D25.9 30-100 ng/mL Vit D sufficient 20-<30 ng/mL Vit D insufficient >100 ng/mL Potential Toxicity <20 ng/mL Vit D deficient Performing Lab:see note - [facility] LBOccult Blood* Reviewed date:03/12/2025 05:04:36 PM Interpretation: Performing Lab: Notes/Report: [facility] ,Occult BloodPositivePerforming Lab:see note [facility] Reviewed date:04/30/2025 05:53:15 PM Interpretation: Performing Lab: Notes/Report: [facility] ,Free T32.632.18-3.98 pg/mLPerforming Lab:see [facility]University [facility] T4 Reviewed date:04/30/2025 05:53:15 PM Interpretation: Performing Lab: Notes/Report: [facility] ,T4 Fblmyghll37.004.80-13.90 ug/dLPerforming Lab:see [facility] Reviewed date:04/30/2025 05:53:15 PM Interpretation: Performing Lab: Notes/Report: [facility] ,Thyroid Stimulating Hormone0.1400.358-3.740 uIU/mLPerforming Lab:see noteML - [facility] Reason For Referral Diagnosis 1 Occult blood positiv e stool (R19.5) Diagnosis 2 Hx of colon cancer, stage I (Z85.038) Referral Organization [facility] Referring Provider First Name Chapito Referring Provider Last Name Betzaida Referring Provider Speciality Family Med shin Referred Provider Pavel Atkins Referred Provider Specialty General Surg nate Referral Priority Routine Medications Medication SIG (Take, Route, Frequency, Duration) Notes Start Date End Date Status Cholecalciferol 50 MCG (1999) 1 capsule Orall y Once a day; Duration: 30 days 5ActiveDiclofenac Sodium 75 MG1 tablet Orally Twice a dayActive Doxycycline Monohydrate 100 MG1 tablet Orally bid; Duration: 10 days02/17/2025 ActiveNexIUM 40 MG1 capsule Orally Once a dayActiveLevothyroxine Sodium 100 MCG TAKE 1 TABLET BY MOUTH EVERY DAY; Duration: 90 daysActivePreserVision AREDS 2 -1 capsule Orally BIDActiveNebivolol HCl 20 MGTAKE 1 TABLET BY MOUTH EVERY DAY; Duration: 90ActiveTriamcinolone Acetonide 0.1 %1 application Externally bid 5ActiveLiothyronine Sodium 5 MCGTAKE 1 TABLET BY MOUTH EVERY DAY ON EMPTY STOMACH FOR 30 DAYS; Duration: 30ActiveAspirin 81 81 MG1 tablet Orally Once a dayActiveCaltrate Minis Plus Minerals 300-800 MG-UNITas directed Orally dailyActive Social History Tobacco Use: Social History Observation Description Date Details (start date - stop date) Former Smoker 07/24/1966 - 07/24/1999 Tobacco Use/Smoking Question Answer Notes Patient is a former smoker When did you start smoking?07/24/1966When did you stop smoking?07/24/1999How long has it been since you last smoked?> 10 yearsAlcohol Screen (Audit-C) Question Answer Notes Did you have a drink containing alcohol in the p ast year? No Jressu7ZicexblnzqyfboThwxibebXRYFK-C (Standard) Question Answer Notes Did you have a drink containing alcohol in the p ast year? No Zvsxjk1QsbhfsbnmkrnknGnwellvk Problems Problem Type SNOMED Code ICD Code Onset Dates Problem Status W/U Status Risk Notes Problem Hypothyroidism (35139543) Hypothyroidism, unspecified (E03.9) ActiveconfirmedProblemMorbid obesity (disorder) (571169943)Morbid (severe) obesity due to excess calories (E66.01)ActiveconfirmedProblemHyperlipidemia (20606097)Hyperlipidemia, unspecified (E78.5)ActiveconfirmedProblemDegenerative disorder of macula (025153287)Unspecified macular degeneration (H35.30)Active confirmedProblemEczema (73538948)Eczema (L30.9)ActiveconfirmedProblemVitamin D deficiency (93854574)Vitamin D deficiency (E55.9)ActiveconfirmedProblemHistory of malignant neoplasm of colon (102432864)Hx of colon cancer, stage I (Z85.038) ActiveconfirmedProblemCellulitis (562497661)Cellulitis (L03.90)Activeconfirmed ProblemSeasonal allergic rhinitis (326548365)Seasonal allergic rhinitis (J30.2) ActiveconfirmedProblemSciatica (16956961)Sciatic leg pain (M54.30)Active confirmedProblemAbnormal feces (234608075)Occult blood positive stool (R19.5) ActiveconfirmedProblemDiverticular disease (291596782)Diverticular disease (K57.90)ActiveconfirmedProblemEssential hypertension (06827094)Essential (primary) hypertension (I10)ActiveconfirmedProblemIrritable bowel syndrome (00791442)IBS (irritable colon syndrome) (K58.9)Activeconfirmed Vital Signs Blood pressure diastolic 82 mm Hg 03/12/2025 Qxieiu92 in03/12/2025lood pressure qwxystiz892 mm Hg03/12/20255560Nfepkm062.06 lbs 03/12/2025BMI42.11 kg/m203/12/2025 Encounters Encounter Location Date Provider Diagnosis [facility] [address] [place] [address] 09/12/2024 Chapito Hoy Morbid (severe) obes ity due to excess calories E66.01 ; Essential (primary) hypertension I10 ; Hypothyroidism, unspecified E03.9 ; Hyperlipidemia, unspecified E78.5 and Eczema L30.9 [facility] [address] [facility]], [place] [address] 03/12/2025 Chapito Hoy Hypothyroidism, unspecified E03.9 ; Essential (primary) hypertension I10 ; Hyperlipidemia, unspecified E78.5 and Morbid (severe) obesity due to excess calories E66.01 [facility] [address] [facility]], [place] [address] 02/17/2025 Chapito Hoy Cellulitis L03.90 [facility] [address] [facility]], [place] [address] 02/19/2025 Chapito Hoy [facility] [facility] [place] [address] 02/21/2025Doug [facility] [facility]], [place] [address]/08/2025[facility]BV[facility] [place] [address]/18/2025Doug HoyHyperlipidemia, unspecified E78.5 ; Hypothyroidism, unspecified E03.9 ; Fatigue R53.83 ; Vitamin D deficiency E55.9 and Scre[facility] colon [facility] Z12.11B[facility] [facility]], [place] [address]Doug [facility] [facility]], [place] [address]/19/2025Doug [facility] [facility]], [place] [address]/20/2025 Chapito HoyHx of colon cancer, stage I Z85.038 and Occult blood positive stool R19.5BVPoudre [facility] [place] [address] 04/15/2025Doug HoyHypothyroidism, unspecified E03.9BSt. [facility] [facility]], [place] [address]/08/2025Doug Hoy Hypothyroidism, unspecified E03.9 Assessments Encounter Date Diagnosis (ICD Code) Assessment Notes Treatment Notes Treatment Clinical Notes Section Notes 09/12/2024 Morbid (severe) obesity due to e xcess calories (ICD-10 - E66.01) 09/12/2024Essential (primary) hypertension (ICD-10 - I10)03/12/2025 Hypothyroidism, unspecified (ICD-10 - E03.9)03/12/2025Essential (primary) hypertension (ICD-10 - I10)02/17/2025ellulitis (ICD-10 - L03.90)03/10/2025 Hypothyroidism, unspecified (ICD-10 - E03.9)03/10/2025Hyperlipidemia, unspecified (ICD-10 - E78.5)03/12/2025Hx of colon cancer, stage I (ICD-10 - Z85.038)03/12/2025Occult blood positive stool (ICD-10 - R19.5)04/15/2025 Hypothyroidism, unspecified (ICD-10 - E03.9)04/30/2025Hypothyroidism, unspecified (ICD-10 - E03.9)03/10/2025Fatigue (ICD-10 - R53.83)03/12/2025 Hyperlipidemia, unspecified (ICD-10 - E78.5)09/12/2024Hypothyroidism, unspecified (ICD-10 - E03.9)03/12/2025Morbid (severe) obesity due to excess calories (ICD-10 - E66.01)09/12/2024Hyperlipidemia, unspecified (ICD-10 - E78.5) 03/10/2025Vitamin D deficiency (ICD-10 - E55.9)03/10/2025Screening for colon cancer (ICD-10 - Z12.11)09/12/2024Eczema (ICD-10 - L30.9) Plan Of Treatment Pending Test Test Name Order Date CMP (COMPLETE METABOLIC PANEL) 4 HEMOGLOBIN A1C (GLYCO) 03/14/2024 IRON, TOTAL 03/14/2024 LIPID PANEL (CHOL/TRIG/HDL/LDL) 03/14/20 24 CBC WITH DIFF 03/14/2024 FECAL OCCULT BLOOD 03/10/2025 Insulin Level 03/14/2024 STOOL OCCULT BLOOD 03/14/2024 CBC AUTO DIFF 02/10/2023 RAN - VITAMIN D 03/10/2025 GLYCOHEMOGLOBIN A1C 02/10/2023 LIPID PROFILE 02/10/2023 PROF 14(COMP METB) 02/10/2023 THYROID PROFILE WITH TSH 02/10/2023 THYROID PANEL (T4/TSH/FREE T3) 5 THYROID PANEL (T4/TSH/FREE T3) 5 THYROID PANEL (T4/TSH/FREE T3) 4 MM screening mammo BI 03/14/2024 Next Appt Details Provider Name:Chapito Huston, 01:30:00 PM, [address] [place], [address], Insurance Providers Payer Name Payer Address Payer Phone Subscriber Number Group Number Insured Name Patient Relationship to Insured Coverage Start Date Coverage End Date [facility] [employer] [address] [address] [place] [address] [id number] Rj Cooney - patient is the insuredMEDICARE RAILROADPO [address] [address] [place], [place] [id number], AliceSelf - patient is the insured Medical (General) History Medical History History ICD Code Seasonal allergic rhinitis J30.2 Diverticular disease K57.90 IBS (irritable colon syndrome) K58.9 Eczema L30.9 Hx of colon cancer, stage I Z85.038 Surgical History Surgery Date(Month/Year) Colon Resection Cardiac CathTonsillectomyAppendectomyTotal abdominal Hysterectomy
--- OUTSIDE RECORDS SUMMARY | 2025-05-13 11:06 | XMS_ITS | CCD ---
Author Organization [facility] Care Team Providers Care Alpine Guide Name Role Phone NICHOLAS ., DR WILL Primary Care Unavailable BITA, DR ANETTE Mendez Attending Unavailable BITA, DR ANETTE Mendez Admitting Unavailable BITA, DR ANETTE Mendez Consulting Unavailable AARON VICENTE Consulting Unavailable COLLINY ., DR WILL Admitting Unavailable NICHOLAS ., DR WILL Primary Care Unavailable HOY ., DR WILL Consulting Unavailable HOY ., DR WILL Attending Unavailable COLLINY ., DR WILL Admitting Unavailable COLLINY ., DR WILL Primary Care Unavailable HOY ., DR WILL Consulting Unavailable HOY ., DR WILL Attending Unavailable DESIREE, DR DENIS Mendez Consulting Unavailable Pavel ARVIZU Attending Unavailable Suman Huston Referring Unavailable Suman Huston Primary Care Physician Allergies Allergy ClassificationReported Allergen(s)Allergy TypeDate of OnsetReaction(s) Facility (1 source)Adhesive bandageDrug allergy (disorder)[facility] (2 sources)meloxicam; 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: [Mobic]Drug AllergyThe [facility] Medications Current Medications MedicationDrug Class(es)DatesSig (Normalized)Sig (Original)aspirin 81 mg delayed release oral tablet (1 source)Platelet Aggregation Inhibitor, Nonsteroidal Anti-inflammatory Drug Start: 85-31-0747dxtw 1 tablet by mouth once dailyaspirin 81 mg Oral EC Tab 81 mg = 1 tab(s), Oral, Daily, Refills(s) 0 Start Date: 03/31/25 Status: Ordered Repeat number: 1calcium carbonate 1500 mg / cholecalciferol 800 unt oral tablet (1 source)Vitamin DStart: 61-80-5751Xczqcnmn 600 + D oral tablet 1 tab(s), Oral, BID, 60 tab(s), Refill(s) 0 Start Date: 09/17/20 Status: Ordered Quantity: 60.0 Unit: tab(s) Repeat number: 1diclofenac sodium 75 mg delayed release oral tablet (1 source)Nonsteroidal Anti-inflammatory DrugStart: 94-99-2423vxqe 1 tablet by mouth twice dailydiclofenac sodium 75 mg Oral EC Tab 75 mg = 1 tab(s), Oral, BID, # 60 tab(s), Refills(s) 0 Start Date: 09/17/20 Status: Ordered Quantity: 60.0 Unit: tab(s) Repeat number: 1esomeprazole 40 mg delayed release oral capsule (1 source)Proton Pump InhibitorStart: 35-71-1672jxkl 1 capsule by mouth once dailyNexium 40 mg Cap-EC 40 mg = 1 cap(s), Oral, Daily, # 30 cap(s), Refills(s) 0 Start Date: 09/17/20 Status: Ordered Quantity: 30.0 Unit: cap(s) Repeat number: 1levothyroxine sodium 0.1 mg oral tablet (1 source)l-ThyroxineStart: 65-91-9840hrue 1 tablet by mouth once dailySynthroid 100 mcg Tab 100 mcg = 1 tab(s), Oral, Daily, # 30 tab(s), Refills(s) 0 Start Date: 09/17/20 Status: Ordered Quantity: 30.0 Unit: tab(s) Repeat number: 1 liothyronine sodium 0.005 mg oral tablet (1 source)l-TriiodothyronineStart: 39-07-6271xrzz 1 tablet by mouth once daily Cytomel 5 mcg Tab 5 mcg = 1 tab(s), Oral, Daily, Refills(s) 0 Start Date: 03/31/25 Status: Ordered Repeat number: 1nebivolol 20 mg oral tablet (1 source)Start: 58-42-1973fycb 1 tablet by mouth once dailyBystolic 20 mg oral tablet 20 mg = 1 tab(s), Oral, Daily, Refills(s) 0 Start Date: 03/31/25 Status: Or dered Repeat number: 1PreserVision AREDS (2 sources)Start: 85-41-3877mcmq 1 tablet by mouth twice dailyPreserVision AREDS 1 tab(s), Oral, BID, Refill(s) 0 Start Date: 04/29/25 Status: Ordered Repeat number: 1Start: 47-50-1405jsmv 1 tablet by mouth twice dailyPreserVision AREDS 1 tab(s), Oral, BID, Refill(s) 0 Start Date: 03/31/25 Status: Ordered Repeat number : 1Refresh Dry Eye Therapy (1 source)Start: 44-09-1787svbc 1 drop(s) into the eye(s) once dailyRefresh Dry Eye Therapy 1 drop(s), Eye-Both, Daily, Refill(s) 0 Start Date: 04/29/25 Status: OrderedRepeat number: 1Vitamin D2 2000 intl units oral capsule (1 source)Start: 53-40-7635gizj 1 capsule by mouth once dailyVitamin D2 2000 intl units oral capsule 50 mcg = 1 cap(s), Oral, Daily, cap(s), Refills(s) 0 Start Date: 03/31/25 Status: Ordered Repeat number: 1 Problems Active Problems Problem ClassificationProblemDateDocumented DateEpisodic/ChronicAllergic reactions (1 source)Ieebri33-28-4573RtizpengQjhlur of colon (2 sources)History of malignant neoplasm of colon; 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: [Personal history of other malignant neoplasmof large intestine]Onset: 67-97-0930Rpttruge Disorders of lipid metabolism (1 source)Ustbwsrjwuoilc29-04-1584VpqwbaaDrctxubkoyniiq and diverticulitis (1 source)Diverticular siylevz70-58-7009XhiakfgGadfairiyi disorders (1 source)Gastroesophageal reflux vdpvsun90-14-9730KieewtdFnkjzliwx hypertension (2 sources)Essential (primary) hypertension; 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: [Hypertensive disorder]Onset: 648573-99-3681VzphjfnUythlfnr; including migraine (4 sources)Headache; including migraine; 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: [HEADACHE UNSPECIFIED] Onset: 40-67-9339Fcxlr and unspecified benign neoplasm (3 sources)History of polyp of colon; 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: [Personal history of adenomatous and serrated colon polyps]Onset: 67-32-7948QsaabgheQiduz gastrointestinal disorders (1 source)Irritable bowel syndrome without diarrhea; 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: [IRRITABLE BOWEL SYND W/O DIARRHEA]Onset: 96-59-6413LquqbwaToqdw gastrointestinal disorders (1 source)Irritable bowel nkatpxxj49-00-0290MppgywaBhrrf gastrointestinal disorders (1 source)Occult blood in -54-0263DcxucxnhSoazc nutritional; endocrine; and metabolic disorders (1 source)Body mass index 40+ - severely xkubp33-54-3894VjbxkpeJvfmr upper respiratory infections (4 sources)Acute sinusitis, unspecified; 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: [ACUTE SINUSITIS UNSPECIFIED]Onset: 65-80-8497CzwjvbsjYprgmml detachments; defects; vascular occlusion; and retinopathy (1 source)Degenerative disorder of iefmur09-48-4365SbcrvlsXdtqmaa disorders (2 sources)Hypothyroidism, unspecified; 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: [Hypothyroidism]Onset: 056465-51-2591BuqsywlScawi infection (1 source)COVID-19; 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: [COVID-19]Onset: 09-25-2022 Past or Other Problems Problem ClassificationProblemDateDocumented DateEpisodic/ChronicDeficiency and other anemia (1 source)Anemia, unspecified; 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: [ANEMIA UNSPECIFIED]Onset: 00-12-5343AfsofuqkGkrjyeqi mellitus without complication (1 source)Other abnormal glucose; 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: [OTHER ABNORMAL GLUCOSE]Onset: 44-25-8517PuoesckfLuwpn aftercare (1 source)prison (current) use of aspirin; 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: [JAIL CURRENT USE OF ASPIRIN]Onset: 56-24-7161IbhdaxvfLpyfw aftercare (1 source)Other retirement (current) drug therapy; 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]Onset: 52-48-4875GvuqthobVdfgy screening for suspected conditions (not mental disorders or infectious disease) (4 sources)Encounter for screening mammogram for malignant neoplasm of breast; 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: [ENC SCR MAMMO MALIG NEOPLASM BREAST]Onset: 80-19-5856Bomwvjrj Screening and history of mental health and substance abuse codes (1 source)Personal history of nicotine dependence; 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: [PERSONAL HISTORY OF NICOTINE DEPEND]Onset: 22-33-1969Fnifkdzl Results Test NameValueInterpretationReference RangeFacilityAmbulatory Visit Summaryon 83-17-2121Zsedikfwgf Visit SummaryAmbulatory Visit Summary ASAEL HERNANDES :1945 Visit Date:04/29/2025 Ambulatory Visit Instructions Your Diagnosis Personal history of colon cancer Personal history of adenomatous and serrated colon polyps Your Care Team Attending Physician - Pavel ARVIZU MD Primary Care Physician - Suman Huston MD Referring Physician - Suman Huston MD This Is Your Medications List Contact [...] Tablets By Mouth 2 times a day Contactprescribing physician if questions or concerns Unchanged diclofenac (diclofenac sodium 75 mg Oral EC Tab) 1 Tablets By Mouth 2 times a day Contactprescribing physician if questions or concerns Unchanged ergocalciferol [...] signed up for this yet, please contact [employer] at [phone] to get signed up today. Language Information Language assistance services are available as needed. [facility] HospitalCovid-19 PCR (CVDTBH)on 28-40-3399PGVU-CoV-2 (COVID-19) RNA HONORIO+probe Ql (Unsp spec)DetectedAbnormalNOT DETECTEDThe [facility] HospitalComment on above:Result Comment: This test is not yet approved or cleared by the [place] FDA. When there are no FDA-approved or cleared tests available, and other criteria are met, FDA can make tests available under an emergency access mechanism called an Emergency Use Authorization (EUA). The EUA for this test is supported by the Business Intelligence Administrator of Health and Human Service's declaration that circumstances exist to justify the emergency use of in vitro diagnostics for the detection and/or diagnosis of the virusthat causes COVID-19. This EUA will remain in effect for the duration of the COVID-19 declaration justifying emergency of IVDs, unless it is terminated or revoked by the FDA (after which the test mayno longer be used).Performed By: #### CVDTBH #### [facility] [address] [place] [address] Dr. Deven GeCT HEAD WO CONon 90-04-9551MA HEAD WO CONEXAM: CT HEAD WO CON CLINICAL INDICATION: HEADACHE [...] Electronically authenticated by: AARON VICENTE Date: 2022-04-13 22:58NoCleveland Clinic Union HospitalINSULINon 23-81-9687Wbhrssb30.5 uIU/mLNormal2.6-24.9The [facility] HospitalComment on above:Performed By: #### INSULIN #### [facility] [address] [place] [address] Dr. Deven GeT4, T3U, FTI LABCORPon 70-85-1412Ooza Thyroxine Index2.2Normal 1.2-4.9The [facility] HospitalComment on above:Performed By: #### THYLC #### [facility] [address] [place] [address] Dr. Deven GeT3 Stgtjl91 %Lyubpe64-93Pld [facility] HospitalComment on above: Performed By: #### THYLC #### [facility] [address] [place] [address] Dr. Deven GeT4 [Mass/Vol]8.2 ug/dLNormal4.5-12.0[facility] CenterComment on above:Performed By: #### THYLC #### [facility] [address] [place] [address] Dr. Deven SimpsonC AUTO DIFFon 45-86-5584IYIP #0.0 103/ulNormal0.0-0.1The [facility] HospitalComment on above:Performed By: #### CBC ####[facility] [address] [place], [place] [address]Dr.Deven ChangBasophils/100 WBC (Bld)0.4 %Normal0.2-2.0The [facility] HospitalComment on above:Performed By: #### CBC ####[facility] H[address] [place], [place] [address]Dr.Deven ChangEO #0.1 103/ulNormal0.0-0.7The [facility] HospitalComment on above:Performed By: #### CBC ####[facility] Vekhaintsp[address] [place], [place] [address]Dr.Deven ChangEosinophils/100 WBC (Bld)1.9 %Normal 0.9-7.0The [facility] HospitalComment on above:Performed By: #### CBC ####[facility] Majcbsix[address] [place], [place] [address]Dr.Deven Ge Erythrocyte distribution width (RBC) [Ratio]12.6 %Nsjbrg39.0-15.0The [facility] on above:Performed By: #### CBC ####[facility] Okwtpcqqmh[address] [place], [place] [address]Dr.Deven GeHematocrit (Bld) [Volume fraction]40.7 %Bcrygy25.0-48.0The [facility] HospitalComment on above:Performed By: #### CBC ####[facility] Vs[address] [place], [place] [address]Dr.Deven GeHemoglobin (Bld) [Mass/Vol]13.4 g/dL Dyqaqz96.0-16.0The [facility] Centerment on above:Performed By: #### CBC ####[facility] W[address]ovs[address] [place], [place] [address]Dr. Deven GeIG #0.02 10e3/ulNormal0.00-0.03The [facility] HospitalComment on above: Performed By: #### CBC ####[facility] [address] [address]Dr.Deven GeIG %0.3 %Normal0.0-0.5The [facility] HospitalComment on above:Performed By: #### CBC ####[facility] [address] [address]Dr.Deven GeLYMPH #2.1 103/ulNormal1.2-3.8The [facility] HospitalComment on above:Performed By: #### CBC ####[facility] [address] [address]Dr. Deven GeLymphocytes/100 WBC (Bld)31.2 %Nllbei92.5-60.0[facility] Comment on above:Performed By: #### CBC ####[facility] Jakczlveok[address] [place], [place] [address]Dr.Deven GeMANUAL DIFF REQNONormalThe [facility] HospitalComment on above:Performed By: #### CBC ####[facility] Tac[address]abnjv[address] [place], [place] [address]Dr.Deven GeH (RBC) [Entitic mass]31.2 saFhrltq42.7-34.0[facility] CenterComveterans affairs medical center on above: Performed By: #### CBC ####[facility] [address]ud[address]cl[address] [place], [place] [address]Dr.Deven GeHC (RBC) [Mass/Vol]32.9 g/dLNormal 29.9-35.2[facility] CenterComment on above:Performed By: #### CBC ####[facility] Qzzmuirqef[address] [place], [place] [address]Dr. Deven GeV (RBC) [Entitic vol]94.9 bERrzmmx42.0-99.0[facility] Comment on above:Performed By: #### CBC ####[facility] Lndgkqoxva[address] [place], [place] [address]Dr.Deven JooMONO #0.5 103/ulNormal0.3-0.8 The [facility] HospitalComment on above:Performed By: #### CBC ####[facility] [address] [address]Dr.Deven Ge Monocytes/100 WBC (Bld)6.6 %Normal1.7-12.0The [facility] HospitalComment on above: Performed By: #### CBC ####[facility] Uubwdoefsj[address] [place], [place] [address]Dr.Deven GeNEUT #4.1 103/ulNormal1.4-6.5The [facility] HospitalComment on above:Performed By: #### CBC ####[facility] [address] [place], [place] [address]Dr.Deven GeNeutrophils/100 WBC (Bld)59.6 %Uddzod61.0-75.0The [facility] HospitalComment on above:Performed By: #### CBC ####[facility] [address]libfui[address]cf[address] [place], [place] [address]Dr.Deven GePlatelet mean volume (Bld) [Entitic vol]10.7 fLNormal9.5-13.5 The [facility] HospitalComment on above:Performed By: #### CBC ####[facility] [address] [place], [place] [address]Dr.Deven NyzuaUZI245 103/vpYanfho052-681Bge [facility] HospitalComment on above:Performed By: #### CBC ####[facility] Ifbghlgvwx[address] [place], [place] [address]Dr. Deven ChangRBC4.29 106/ulNormal4.20-5.40The [facility] HospitalComment on above: Performed By: #### CBC ####[facility] Uhji[address]oc[address] [place], [place] [address]Dr.Deven ChangWBC6.9 103/ulNormal4.0-11.0The [facility] HospitalComment on above:Performed By: #### CBC ####[facility] Xxqbo[address]agqi[address] [place], [place] [address]Dr.Deven GeGLYCOHEMOGLOBIN A1Con 75-34-7348OBC RECOMMENDATIONSEE [facility] on above:Result Comment: ADA RECOMMENDED LIMIT 4.0 - 6.0 ADA THERAPEUTIC TARGET < 7.0 ACTION SUGGESTED > 7.0Performed By: #### A1C #### [facility] [address] [place] [address] Dr. Deven GeGlucose [Mass/Vol]111 mg/dLMetroHealth Parma Medical Center on above:Performed By: #### A1C #### [facility] [address] [address] [address] Deven GeHbA1c (Bld) [Mass fraction]5.5 %Normal4.5-6.2The [facility] on above:Performed By: #### A1C #### [facility] [address] [place] [address] Dr. Deven Jones 03-57-5804Ewgu [Mass/Vol]111.0 ug/fQGlirsj92.0-170.0The [facility] on above:Performed By: #### IRON #### [facility] [address] [place] [address] Dr. Deven GeLIPID PROFILEon 82-61-3789RXHY-HDL RATIO NORMSEE [facility] HospitalComveterans affairs medical center on above:Result Comment: 3.3 - 4.4 LOW RISK 4.4 - 7.1 AVERAGE RISK 7.1 - 11.0 MODERATE RISK >11.0 HIGH RISKPerformed By: #### LIPID, CMP, TSH #### [facility] [address] [place] [address] Dr. Deven GeCholesterol [Mass/Vol]220 mg/dLCritically high<=200The [facility] on above:Performed By: #### LIPID, CMP, TSH #### [facility] [address] [place] [address] Dr. Deven GeCholesterol in HDL [Mass/Vol]61 mg/dLCritically vxus92-14Djn [facility] on above:Performed By: #### LIPID, CMP, TSH #### [facility] [address] [place] [address] Dr. Deven Velezesterol in LDL [Mass/Vol]132.2 mg/dLTriHealth Good Samaritan HospitalComment on above:Performed By: #### LIPID, CMP, TSH #### [facility] [address] [place] [address] Dr. Deven Lomax.total/Cholesterol in HDL [Mass ratio]3.6 {ratio} NormalAdena Regional Medical CenterComment on above:Performed By: #### LIPID, CMP, TSH #### [facility] [address] [address] [address] Deven Mora NORMAL> or = 60 mg/dl - LOW CARDIOVASCULAR RISK <40 mg/dl - HIGH CARDIOVASCULAR RISKTriHealth Good Samaritan HospitalComment on above:Performed By: #### LIPID, CMP, TSH #### [facility] [address] [place] [address] Dr. Deven Rae CALC NORMALSEE BELOWNoCleveland Clinic Union HospitalComment on above:Result Comment: <100 mg/dl OPTIMAL 100 - 129 mg/dl NEAR OR ABOVE OPTIMAL 130 - 159 mg/dl BORDERLINE HIGH 160 - 189 mg/dl HIGH >190 mg/dl VERY HIGH Performed By: #### LIPID, CMP, TSH #### [facility] [address] [address] [address] Deven GeTriglyceride [Mass/Vol]134 mg/dLNormal<=150[facility] Comment on above:Performed By: #### LIPID, CMP, TSH #### [facility] [address] [place] [address] Dr. Deven GeVLDL CALC26.8 mg/dLNoCleveland Clinic Union HospitalComment on above: Performed By: #### LIPID, CMP, TSH #### [facility] [address] [place] [address] Dr. Deven GeMG MAMM SCREEN 3D CHRISTIANO CADon 56-63-2853AW MAMM SCREEN 3D CHRISTIANO CAD Patient: ASAEL HERNANDES Exam Date: 03/18/2022 : 1945 Gender:F Ordering : DR SUMAN HUSTON . Admission #: [id number] Family : Order #: [id number] CLICK HERE TO VIEW EXAM RADIOLOGY REPORT [...] colon cancer at age 34. LOCATION: [facility] BREAST COMPOSITION: Heterogeneously dense,which may obscure [...] by: Denis Montez M.D. on 03/18/2022 at 14:52[facility] Samaritan HospitalPRO 14(COMP METB)on 30-74-6252Gdhqpbj [Mass/Vol]3.6 g/dLNormal3.4-5.0 [facility] HospitalComment on above:Performed By: #### LIPID, CMP, TSH #### [facility] [address] [place] [address] Dr. Deven GeAlbumin/Globulin [Mass ratio]1.0 {ratio}NormalThe [facility] HospitalComment on above:Performed By: #### LIPID, CMP, TSH #### [facility] [address] [address] [address] Deven Carrasco [Catalytic activity/Vol]69 U/HAlgikb94-309Kyp [facility] on above:Performed By: #### LIPID, CMP, TSH #### [facility] [address] [address] [address] Deven MacedoT [Catalytic activity/Vol]24 U/UQawvrb08-19Mxk [facility] HospitalComment on above:Performed By: #### LIPID, CMP, TSH #### [facility] [address] [address] [address] Deven Manleyon gap [Moles/Vol]11.2 mmol/LNormalThe [facility] Comment on above:Performed By: #### LIPID, CMP, TSH #### [facility] [address] [address] [address] Deven GeAST [Catalytic activity/Vol]13 U/LCritically wno66-79Ber [facility] HospitalComment on above:Performed By: #### LIPID, CMP, TSH #### [facility] [address] [address] [address] Deven GeBilirubin [Mass/Vol]0.4 mg/dLNormal0.2-1.0[facility] Comment on above:Performed By: #### LIPID, CMP, TSH #### [facility] [address] [address] [address] Deven GeCalcium [Mass/Vol]9.0 mg/dLNormal8.5-10.1[facility] Comment on above:Performed By: #### LIPID, CMP, TSH #### [facility] [address] [address] [address] Deven GeChloride [Moles/Vol]104 mmol/CQjhlpq89-662Kcc [facility] Comment on above:Performed By: #### LIPID, CMP, TSH #### [facility] [address] [address] [address] Deven GeCO2 [Moles/Vol]31.0 mmol/WOmfoab69.0-32.0[facility] Comment on above:Performed By: #### LIPID, CMP, TSH #### [facility] [address] [address] [address] Deven GeCreatinine [Mass/Vol]0.87 mg/dLNormal0.55-1.02The [facility] HospitalComment on above:Performed By: #### LIPID, CMP, TSH #### [facility] [address] [address] [address] Deven HillGFR-AF CZECH>60Normal>=60The [facility] HospitalComment on above:Performed By: #### LIPID, CMP, TSH #### [facility] [address] [address] [address] Deven HillGFR-NON AF CZECH>60Normal>=60The [facility] HospitalComment on above:Performed By: #### LIPID, CMP, TSH #### [facility] [address] [address] [address] Deven GeGlobulin (S) [Mass/Vol]3.5 g/dLNormalThe [facility] HospitalComment on above:Performed By: #### LIPID, CMP, TSH #### [facility] [address] [address] [address] Deven GeGlucose [Mass/Vol]117 mg/dLCritically uihm48-298Xla [facility] Centerment on above:Performed By: #### LIPID, CMP, TSH #### [facility] [address] [address] [address] Deven GePotassium [Moles/Vol]4.2 mmol/LNormal3.5-5.1[facility] Comment on above:Performed By: #### LIPID, CMP, TSH #### [facility] [address] [address] [address] Deven GeProtein [Mass/Vol]7.1 g/dLNormal6.4-8.2[facility] Comment on above:Performed By: #### LIPID, CMP, TSH #### [facility] [address] [address] [address] Deven GeSodium [Moles/Vol]142 mmol/AWwasqx296-613YamAdena Regional Medical Center Comment on above:Performed By: #### LIPID, CMP, TSH #### [facility] [address] [address] [address] Deven GeUrea nitrogen [Mass/Vol]12.0 mg/dLNormal7.0-18.0The [facility] HospitalComment on above:Performed By: #### LIPID, CMP, TSH #### [facility] [address] [place] [address] Dr. Deven GeUrea nitrogen/Creatinine [Mass ratio]13.8 mg/mgNormalThe [facility] HospitalComment on above:Performed By: #### LIPID, CMP, TSH #### [facility] [address] [address] [address] Deven Batres 69-96-4626JYG3.703 uIU/mLNormal0.358-3.740The [facility] HospitalComment on above:Performed By: #### LIPID, CMP, TSH #### [facility] [address] [address] [address] Deven Ge Encounters Encounter DateEncounter TypeCare ProviderFacilityStart: 04-29-2025 End: 92-54-1939kkqppcrwhwYzzvgmr R NILLFacility:[facility]ueStart: 04-29-2025 End: 11-47-8930Pckrlzc encounter procedureMichael R NILL 125-6965Tlwriu-TaxhwSelect [facility] [place] Start: 09-21-2022 End: 55-25-4582lefsysbnjcBK SUMAN HOY .Facility:J7Beoav: 04-13-2022 End: 39-58-1598vpkvvfexzuMT SUMAN HOY .Facility:E0Sjcsb: 03-18-2022 End: 74-80-0143ridebjcmyuGB SUMAN HOY .Facility: Procedures DateProcedureProcedure DetailPerforming ClinicianStart: 84-51-8448Dlzsbwmrzrv Pavel NILL Start: 74-32-9057Fxmxdtn resection of colonMichael NILL Abdominal hysterectomyMichael NILL AppendectomyMichael NILL Cardiac catheterizationMichael NILL ColonoscopyMichael NILL TonsillectomyMichael NILL Immunizations Immunization DateImmunizationNotesCare DuurxywqZzucwucc54-48-6809SLCU-AxT-8 (COVID-19) mRNAMUL.ORD!j30937Btvwkpd NILL [phone]-LyfnnK[facility] [place] 61-67-1495UACP-CoV-2 mRNA (bmfmejtssue-zdep-smgdzza) vaccineMichael NILL [phone]-BedxjDayton Children'S Hospital 65-41-0478ZAWD-CoV-2 (COVID-19) mRNA BNT-162b2 vaxMichael NILL [phone]-NsxinDayton Children'S Hospital 32-12-7974QUXK-CoV-2 (COVID-19) Ad26 vaccine, recombinantMichael NILL [phone]-RpmfbDayton Children'S Hospital Payers DatePayer CategoryPayerPolicy ID2025Medicare [id number] [id number] [id number] 1960Private Health [id number] Social History DateTypeDetailFacilityStart: 51-01-0116Oonkbtk smoking statusEx-smoker (finding) [facility] CenterueTobacco smoking statusNever [facility] CenterueSexual OrientationFishOhioHealth [facility] [place] Sex Assigned At BirthFeSalem Regional Medical CenterexFemale (finding)[facility] [facility] Clinical Note 04-29-2025 Note Date & [id number] NoteGeneral Surgery Office/Clinic Note Chief Complaint consultation for positive occult stool HPI Staff 79 year old female presents on consultation from Dr. Huston for positive occult stool. Denies abdominal or [...] tobacco use; fmhx of colon cancer in patient'sdaughter, dx at age 36; no fmhx of IBD. Review of Systems PHQ Score Initial Depression Screen Score: 0 SCORE ROS - Provider Constitutional: no fever, no sweats, no weight loss. Eyes: yes glasses, no blurred vision, no visual loss. ENMT: no dentures, no hoarseness, no swallowing difficulties, no hearing loss, no ear infection(s),no nose bleeds. Cardiovascular: normal blood pressure, no [...] Personal history of other malignant neoplasm of largeintestine) plan colonoscopy under anesthesia, informed consent obtained. [...] tab(s), Oral, BID R (more content not included)...[facility] Result Comment: Electronically Signed By: Pavel ARVIZU MD\Date and Time Signed: 04/29/25 15:06 EDT Evaluation + Plan note Note Date & TypeNoteFacilityEvaluation + Plan note No data available for this section [facility] Discharge instructions Note Date & TypeNoteFacilityHospital Discharge instructions No data available for this section [facility] Progress note Note Date & TypeNoteFacilityProgress note No data available for this section [facility] Summary Purpose Family History No Family History Records FoundNo Family History Records Found No data available for this section Advance Directives No Advanced Directives Records FoundNo Advanced Directives Records Found Additional Source Comments INFORMATION SOURCE (unrecogn ized section and content) DATE CREATED AUTHOR 09/27/2022 [facility] DATE CREATED AUTHOR AUTHOR'S ORGANIZ ATION 04/30/2025 [facility] Patient Care team informatio n (unrecognized section and content) Personnel Name: Suman Huston MD Address: [address] [place] [address] [employer]: FOR RECORDS PERTAINING TO PATIENTS WHO ARE [...] BE BASED ON THE PRIMARY CLINICAL RECORDS. [facility] [employer] [facility]. provides no warranty or guarantee of the accuracy or completeness of information in this document.
== END 2025-05-13 11:02 | disposition home or self-care (01) ==
LOC: PST 11:02
PROVIDERS: PCP Family Medicine; Visit Provider Surgery
DX: Z01.818 Encounter for other preprocedural examination (principal); Z86.0101 Personal history of adenomatous and serrated colon polyps; Z85.038 Personal history of other malignant neoplasm of large intestine

== ENCOUNTER 2025-05-21 07:51 | Day surgery (SDC) | payer MEDICARE, SELFPAY ==
--- NOTE | 2025-05-21 | OP_ITS ---
OPERATION DATE: 05/21/2025 PREOPERATIVE DIAGNOSIS: Positive fecal occult blood test. Personal history of colon cancer and colon polyps. POSTOPERATIVE DIAGNOSIS: Redundant tortuous colon. PROCEDURE: Colonoscopy to cecum. SURGEON: Pavel Atkins M.D. ANESTHESIA: Monitored anesthesia care. ESTIMATED BLOOD LOSS: Zero. INDICATIONS AND CONSENT: Patient is a 79-year-old female with history of sigmoid colon cancer, status post sigmoid colectomy in 2007. Last colonoscopy was 2016, which was normal. Indications, risks, benefits, alternatives of proceeding with colonoscopy were explained extensively to the patient, including the risks of bleeding, colon perforation or anesthetic complications. All of her questions were answered. Informed consent was obtained. PROCEDURE: Patient brought to the operating room, placed in the left lateral decubitus position. Monitored anesthesia care was provided. Rectal exam was performed which showed no masses or blood. The scope was inserted into the anal canal. Under direct visualization was advanced. With the aid of abdominal compression, it was advanced to the cecum. Parts of the cecal bulb were obscured by liquid and particulate matter that was partially irrigated clear. Upon withdrawal of the scope, mucosal surfaces were carefully examined. There were no mass lesions or polyps. No inflammatory changes or ulcerations, rare diverticula. A mqwm-lx-fxoe, well-healed anastomosis was noted above the rectum with some retained silk sutures. There was no nodularity or inflammation noted. Within the rectum, the scope was retroflexed. There was no significant hemorrhoidal disease. The scope was then withdrawn. Patient tolerated procedure well, was sent to recovery room in good condition. Patient should have a follow up colonoscopy in five years, if she remains in good health, due to the personal history of colon cancer. CC: Evelio uHston M.D. EVANGELISTA
[2025-05-21 07:57] VITALS: BP 162/64; PULSE 54; TEMP 36.2; O2SAT 94; BMI 41.4
--- OUTSIDE RECORDS SUMMARY | 2025-05-21 07:58 | XMS_ITS | Patient Health Record ---
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 Name Role Phone Karloearlene Chapito Primary Care Provider [phone] Allergies No Known Allergies Results Component Value Reference Range Notes PROF 14(COMP METB) Reviewed date:03/11/2025 07:48:19 PM Interpretation: Performing Lab: Notes/Report: [facility] , Sodium 143 136-145 mmol/L Potassium4.13.5-5.1 mmol/YGbiohnxw59674-986 mmol/LCarbon Gjrdlwn31.221.0-32.0 mmol/LAnion Gap12.0Yjtvcvm88932-153 mg/dLBlood Urea Afpermda14.07.0-18.0 mg/dL Creatinine0.810.55-1.02 mg/dLEstimated GFR ( Viola>60>=60 mL/min/1.73m 2Estimated GFR (Non- Ursula>60>=60 mL/min/1.73m 2BUN Creatinine Ratio12.3 Calcium9.08.5-10.1 mg/dLBilirubin Total0.40.2-1.0 mg/dLAspartate Amino Ykeaqdsvcgw3422-44 U/LAlanine Eporzkiktmhaiwed1554-72 U/LAlkaline Avvhkzvmysn21 46-116 U/LTotal Protein7.26.4-8.2 g/dLAlbumin Level3.43.4-5.0 g/dLGlobulin3.8 Albumin Globulin Ratio0.9Performing Lab:see noteML - [facility] KRISTIAN PORTILLO T3 Reviewed date:03/11/2025 07:48:19 PM Interpretation: Performing Lab: Notes/Report: [facility] ,Free T32.112.18-3.98 pg/mLPerforming Lab:see noteML - [facility] LB T4 Reviewed date:03/11/2025 07:48:19 PM Interpretation: Performing Lab: Notes/Report: [facility] ,T4 Thyroxine7.804.80-13.90 ug/dLPerforming Lab:see note - [facility] LBTSH Reviewed date:03/11/2025 07:48:19 PM Interpretation: Performing Lab: Notes/Report: [facility] ,Thyroid Stimulating Hormone0.8770.358-3.740 uIU/mLPerforming Lab:see noteML - [facility] LBOccult Blood* Reviewed date:03/12/2025 05:04:36 PM Interpretation: Performing Lab: Notes/Report: [facility] ,Occult BloodPositivePerforming Lab:see noteML - [facility] LBFREE T3 Reviewed date:04/30/2025 05:53:15 PM Interpretation: Performing Lab: Notes/Report: [facility] ,Free T32.632.18-3.98 pg/mLPerforming Lab:see noteML - [facility] LB T4 Reviewed date:04/30/2025 05:53:15 PM Interpretation: Performing Lab: Notes/Report: [facility] ,T4 Dpevpkbth79.004.80-13.90 ug/dLPerforming Lab:see note - [facility] LBTSH Reviewed date:04/30/2025 05:53:15 PM Interpretation: Performing Lab: Notes/Report: [facility] ,Thyroid Stimulating Hormone0.1400.358-3.740 uIU/mLPerforming Lab:see noteML - [facility] LBLIPID PROFILE Reviewed date:03/11/2025 07:48:19 PM Interpretation: Performing Lab: Notes/Report: [facility] ,Gebgkwkpblqfn256<=150 mg/mPYgjplgktvlh788<=200 mg/dLHDL Advoiuipokf0731-15 mg/dL > or =60 mg/dl - LOW CARDIOVASCULAR RISK <40 mg/dl - HIGH CARDIOVASCULAR RISK LDL Cholesterol Gbarepqdcp618.0 130-159 mg/dl BORDERLINE HIGH 160-189 mg/dl HIGH >190 mg/dl VERY HIGH 100-129 mg/dl NEAR OR ABOVE OPTIMAL <100 mg/dl OPTIMAL VLDL BHHFGFWQMSE58.4Chol HDL Ratio3.6 >11.0 HIGH RISK 3.3 - 4.4 LOW RISK 4.4 - 7.1 AVERAGE RISK 7.1 - 11.0 MODERATE RISK Performing Lab:see noteML - [facility] LBCBC AUTO DIFF Reviewed date:03/11/2025 07:48:19 PM Interpretation: Performing Lab: Notes/Report: [facility] ,White Blood Count9.44.0-11.0 10 3/uLRed Blood Count4.314.20-5.40 10 6/uL Azqakdowso04.712.0-16.0 g/zGIlfkmrxxxh32.736.0-48.0 %Mean Corpuscular Qklfyd88.4 81.0-99.0 fLMean Corpuscular Tvqtwgwmms39.826.7-34.0 pgMean Corpuscular HGB Conc 33.729.9-35.2 g/dLRed Cell Distribution Width12.511.0-15.0 %Platelet Eilwu632 150-450 10 3/uLMean Platelet Rigepd71.49.5-13.5 fLNeutrophils Percent Auto65.3 43.0-75.0 %Lymphocytes Percent Auto25.720.5-60.0 %Monocytes Percent Auto5.51.7- 12.0 %Eosinophils Percent Auto2.90.9-7.0 %Basophils Percent Auto0.20.2-2.0 % Immature Granulocytes Pct Auto0.40.0-0.5 %Neutrophils Absolute Auto6.21.4-6.5 10 3/uLLymphocytes Absolute Auto2.41.2-3.8 10 3/uLMonocytes Absolute Auto0.50.3-0.8 10 3/uLEosinophils Absolute Auto0.30.0-0.7 10 3/uLBasophils Absolute Auto0.00.0- 0.1 10 3/uLImmature Granulocytes Abs Auto0.040.00-0.03 10 3/uLPerforming Lab:see noteML - [facility] LBVITAMIN D 25 [place] Reviewed date:03/11/2025 07:48:19 PM Interpretation: Performing Lab: Notes/Report: [facility] ,Vitamin D25.9 30-100 ng/mL Vit D sufficient 20-<30 ng/mL Vit D insufficient >100 ng/mL Potential Toxicity <20 ng/mL Vit D deficient Performing Lab:see noteML - [facility] LB Reason For Referral Diagnosis 1 Occult blood positiv e stool (R19.5) Diagnosis 2 Hx of colon cancer, stage I (Z85.038) Referral Organization [facility] Referring Provider First Name Chapito Referring Provider Last Name Karloearlene Referring Provider Speciality Family Med shin Referred [...] alcohol in the p ast year? No Wgvmbi8LvpkxfwvutnrelJbkwkfwiXYROE-S (Standard) Question Answer Notes Did you have a drink containing alcohol in the p ast year? No Eyuzgw9YmyerodbouhpbtDrmkvlww Problems Problem Type SNOMED Code ICD Code Onset Dates Problem Status W/U Status Risk Notes Problem Hypothyroidism (26688191) Hypothyroidism, unspecified (E03.9) ActiveconfirmedProblemMorbid obesity (disorder) (624154658)Morbid (severe) obesity due to excess calories (E66.01)ActiveconfirmedProblemHyperlipidemia (99827415)Hyperlipidemia, unspecified (E78.5)ActiveconfirmedProblemDegenerative disorder of macula (748677939)Unspecified macular degeneration (H35.30)Active confirmedProblemEczema (37683301)Eczema (L30.9)ActiveconfirmedProblemVitamin D deficiency (73055675)Vitamin D deficiency (E55.9)ActiveconfirmedProblemHistory of malignant neoplasm of colon (215957462)Hx of colon cancer, stage I (Z85.038) ActiveconfirmedProblemCellulitis (015660417)Cellulitis (L03.90)Activeconfirmed ProblemSeasonal allergic rhinitis (319498565)Seasonal allergic rhinitis (J30.2) ActiveconfirmedProblemSciatica (46594137)Sciatic leg pain (M54.30)Active confirmedProblemAbnormal feces (401162943)Occult blood positive stool (R19.5) ActiveconfirmedProblemDiverticular disease (591613064)Diverticular disease (K57.90)ActiveconfirmedProblemEssential hypertension (70427543)Essential (primary) hypertension (I10)ActiveconfirmedProblemIrritable bowel syndrome (61719498)IBS (irritable colon syndrome) (K58.9)Activeconfirmed Vital Signs Blood pressure diastolic 82 mm Hg 03/12/2025 Gyerip36 in03/12/2025lood pressure rxkgublp473 mm Hg03/12/20253453Xxqfsk514.06 lbs 03/12/2025BMI42.11 kg/m203/12/2025 Encounters Encounter Location Date Provider Diagnosis [facility] [address] [place] [address] 02/19/[address] [facility] [place] [address] 02/21/2025[facility] [facility] [place] [address]/02/2025[facility] [facility] [address]/Doug HoyHyperlipidemia, unspecified E78.5 ; Hypothyroidism, unspecified E03.9 ; Fatigue R53.83 ; Vitamin D deficiency E55.9 and Screening for colon cancer Z12.11BP[facility] [facility] [place] [address]/Doug [facility] [facility] [place] [address]/[facility] [facility] [place] [address] Chapito HoyHx of colon cancer, stage I Z85.038 and Occult blood positive stool R19.5B[facility] [facility] [address] 04/15/2025Doug HoyHypothyroidism, unspecified E03.9BM[place] [address] [facility] [place] [address]/02/2025Doug Hoy Hypothyroidism, unspecified E03.9BM[place] [address] [facility] [place] [address]/Doug HoyMorbid (severe) obesity due to excess calories E66.01 ; Essential (primary) hypertension I10 ; Hypothyroidism, unspecified E03.9 ; Hyperlipidemia, unspecified E78.5 and Eczema L30.9BPikes [facility] [facility] [place] [address] Chapito HoyCellulitis L03.90BuEating [facility] [facility] [place] [address]/Doug HoyHypothyroidism, unspecified E03.9 ; Essential (primary) hypertension I10 ; Hyperlipidemia, unspecified E78.5 and Morbid (severe) obesity due to excess calories E66.01 Assessments Encounter Date Diagnosis (ICD Code) Assessment Notes Treatment Notes Treatment Clinical Notes Section Notes 09/12/2024 Morbid (severe) obesity due to e xcess calories (ICD-10 - E66.01) 09/12/2024Essential (primary) hypertension (ICD-10 - I10)03/12/2025 Hypothyroidism, unspecified (ICD-10 - E03.9)03/12/2025Essential (primary) hypertension (ICD-10 - I10)02/17/2025ellulitis (ICD-10 - L03.90)03/10/2025 Hyperlipidemia, unspecified (ICD-10 - E78.5)03/10/2025Hypothyroidism, unspecified (ICD-10 - E03.9)03/12/2025Hx of colon cancer, stage I (ICD-10 - Z85.038)03/12/2025Occult blood positive stool (ICD-10 - R19.5)04/15/2025 Hypothyroidism, unspecified (ICD-10 - E03.9)04/30/2025Hypothyroidism, unspecified (ICD-10 - E03.9)03/10/2025Fatigue (ICD-10 - R53.83)03/12/2025 Hyperlipidemia, unspecified (ICD-10 - E78.5)09/12/2024Hypothyroidism, unspecified (ICD-10 - E03.9)09/12/2024Hyperlipidemia, unspecified (ICD-10 - E78.5)03/12/2025Morbid (severe) obesity due to excess calories (ICD-10 - E66.01) 03/10/2025Vitamin D deficiency (ICD-10 - E55.9)03/10/2025Screening for colon cancer (ICD-10 - Z12.11)09/12/2024Eczema (ICD-10 - L30.9) Plan Of Treatment Pending Test Test Name Order Date CMP (COMPLETE METABOLIC PANEL) HEMOGLOBIN A1C (GLYCO) 03/14/2024 IRON, TOTAL 03/14/2024 [...] BI 03/14/2024 Next Appt Details Provider Name:Chapito Pennington Karloaerlene, 01:30:00 PM, [address] [place], [address], Insurance Providers Payer Name Payer Address Payer Phone Subscriber Number Group Number Insured Name Patient Relationship to Insured Coverage Start Date Coverage End Date [facility] [employer] [address] [address] [place] [address] [id number] Rj Cooney - patient is the insuredMEDICARE RAILROADPO [address] [address] [place], [place] [id number], [employer] - patient is the insured Medical (General) History Medical History History ICD Code Seasonal allergic rhinitis J30.2 Diverticular disease K57.90 IBS (irritable colon syndrome) K58.9 Eczema L30.9 Hx of colon cancer, stage I Z85.038 Surgical History Surgery Date(Month/Year) Total abdominal Hysterectomy AppendectomyTonsillectomyCardiac CathColon Resection
--- OUTSIDE RECORDS SUMMARY | 2025-05-21 07:59 | XMS_ITS | CCD ---
Author Organization [facility] Care Team Providers Care Director Network Development Name Role Phone NICHOLAS ., DR WILL [...] OnsetReaction(s) Facility (1 source)Adhesive bandageDrug allergy (disorder)[facility] (2 sources)meloxicam; 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: [Mobic]Drug AllergyThe [facility] Medications Current Medications MedicationDrug Class(es)DatesSig (Normalized)Sig (Original)aspirin 81 mg delayed release oral tablet (1 source)Platelet Aggregation Inhibitor, Nonsteroidal Anti-inflammatory Drug Start: 90-36-5336doka 1 tablet by mouth once dailyaspirin 81 mg Oral EC Tab 81 mg = 1 tab(s), Oral, Daily, Refills(s) 0 Start Date: 03/31/25 Status: Ordered Repeat number: 1calcium carbonate 1500 mg / cholecalciferol 800 unt oral tablet (1 source)Vitamin DStart: 14-09-3105Lmimndqz 600 + D oral tablet 1 tab(s), Oral, BID, 60 tab(s), Refill(s) 0 Start Date: 09/17/20 Status: Ordered Quantity: 60.0 Unit: tab(s) Repeat number: 1diclofenac sodium 75 mg delayed release oral tablet (1 source)Nonsteroidal Anti-inflammatory DrugStart: 73-49-5811fpue 1 tablet by mouth twice dailydiclofenac sodium 75 mg Oral EC Tab 75 mg = 1 tab(s), Oral, BID, # 60 tab(s), Refills(s) 0 Start Date: 09/17/20 Status: Ordered Quantity: 60.0 Unit: tab(s) Repeat number: 1esomeprazole 40 mg delayed release oral capsule (1 source)Proton Pump InhibitorStart: 61-69-1234xmew 1 capsule by mouth once dailyNexium 40 mg Cap-EC 40 mg = 1 cap(s), Oral, Daily, # 30 cap(s), Refills(s) 0 Start Date: 09/17/20 Status: Ordered Quantity: 30.0 Unit: cap(s) Repeat number: 1levothyroxine sodium 0.1 mg oral tablet (1 source)l-ThyroxineStart: 61-84-4794nfns 1 tablet by mouth once dailySynthroid 100 mcg Tab 100 mcg = 1 tab(s), Oral, Daily, # 30 tab(s), Refills(s) 0 Start Date: 09/17/20 Status: Ordered Quantity: 30.0 Unit: tab(s) Repeat number: 1 liothyronine sodium 0.005 mg oral tablet (1 source)l-TriiodothyronineStart: 94-47-7309kdut 1 tablet by mouth once daily Cytomel 5 mcg Tab 5 mcg = 1 tab(s), Oral, Daily, Refills(s) 0 Start Date: 03/31/25 Status: Ordered Repeat number: 1nebivolol 20 mg oral tablet (1 source)Start: 76-13-4925auhp 1 tablet by mouth once dailyBystolic 20 mg oral tablet 20 mg = 1 tab(s), Oral, Daily, Refills(s) 0 Start Date: 03/31/25 Status: Or dered Repeat number: 1PreserVision AREDS (2 sources)Start: 94-54-0341ljzs 1 tablet by mouth twice dailyPreserVision AREDS 1 tab(s), Oral, BID, Refill(s) 0 Start Date: 04/29/25 Status: Ordered Repeat number: 1Start: 07-70-2117gkau 1 tablet by mouth twice dailyPreserVision AREDS 1 tab(s), Oral, BID, Refill(s) 0 Start Date: 03/31/25 Status: Ordered Repeat number : 1Refresh Dry Eye Therapy (1 source)Start: 21-43-1765fels 1 drop(s) into the eye(s) once dailyRefresh Dry Eye Therapy 1 drop(s), Eye-Both, Daily, Refill(s) 0 Start Date: 04/29/25 Status: OrderedRepeat number: 1Vitamin D2 2000 intl units oral capsule (1 source)Start: 71-20-7951glmi 1 capsule by mouth once dailyVitamin D2 2000 intl units oral capsule 50 mcg = 1 cap(s), Oral, Daily, cap(s), Refills(s) 0 Start Date: 03/31/25 Status: Ordered Repeat number: 1 Problems Active Problems Problem ClassificationProblemDateDocumented DateEpisodic/ChronicAllergic reactions (1 source)Yaxdbh22-96-6371WazqnuceLltmwh of colon (2 sources)History of malignant neoplasm of colon; 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: [Personal history of other malignant neoplasmof large intestine]Onset: 95-59-8866Ekuctiuf Disorders of lipid metabolism (1 source)Xbfvygluahvwym31-52-9036YwyitlmDqigjlxksjkdym and diverticulitis (1 source)Diverticular tisqybn14-64-1321XkcgfihTuosdbljwu disorders (1 source)Gastroesophageal reflux -82-2046QfimybeWaoowadmv hypertension (2 sources)Essential (primary) hypertension; 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: [Hypertensive disorder]Onset: 264305-69-0001TvizkmaMmgnlqki; including migraine (4 sources)Headache; including migraine; 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: [HEADACHE UNSPECIFIED] Onset: 05-11-8168Xzjgt and unspecified benign neoplasm (3 sources)History of polyp of colon; 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: [Personal history of adenomatous and serrated colon polyps]Onset: 64-61-6142LarjvzpyGvhvg gastrointestinal disorders (1 source)Irritable bowel syndrome without diarrhea; 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: [IRRITABLE BOWEL SYND W/O DIARRHEA]Onset: 77-35-4517MuanxnhZdpgz gastrointestinal disorders (1 source)Irritable bowel wzmuavhb21-89-7305KwmfrerYrbob gastrointestinal disorders (1 source)Occult blood in lamene28-39-6531CkxppqsqUvlrm nutritional; endocrine; and metabolic disorders (1 source)Body mass index 40+ - severely ujxtb86-07-9230BrzgsgvKpydm upper respiratory infections (4 sources)Acute sinusitis, unspecified; 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: [ACUTE SINUSITIS UNSPECIFIED]Onset: 33-78-4266LaczbiktFfjmagd detachments; defects; vascular occlusion; and retinopathy (1 source)Degenerative disorder of chgroe31-86-3057FcaxgukNhanebi disorders (2 sources)Hypothyroidism, unspecified; 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: [Hypothyroidism]Onset: 456409-72-2891MsacthuXchgx infection (1 source)COVID-19; 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: [COVID-19]Onset: 09-25-2022 Past or Other Problems Problem ClassificationProblemDateDocumented DateEpisodic/ChronicDeficiency and other anemia (1 source)Anemia, unspecified; 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: [ANEMIA UNSPECIFIED]Onset: 51-54-0593XrwopxcnOrobtdvb mellitus without complication (1 source)Other abnormal glucose; 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: [OTHER ABNORMAL GLUCOSE]Onset: 80-91-2754UkfhfqriYlwfs aftercare (1 source)skilled nursing (current) use of aspirin; 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: [LONGTERM CURRENT USE OF ASPIRIN]Onset: 62-29-9915TobnosieHgtib aftercare (1 source)Other nursing home (current) drug therapy; 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: [OTH FIELD SERVICE ANALYST CURRENT DRUG THERAPY]Onset: 09-55-8718ZsshzcndMrwsm screening for suspected conditions (not mental disorders or infectious disease) (4 sources)Encounter for screening mammogram for malignant neoplasm of breast; 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: [ENC SCR MAMMO MALIG NEOPLASM BREAST]Onset: 31-63-3343Imvobywf Screening and history of mental health and substance abuse codes (1 source)Personal history of nicotine dependence; 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: [PERSONAL HISTORY OF NICOTINE DEPEND]Onset: 43-79-4693Iovlvsle Results Test NameValueInterpretationReference RangeFacilityAmbulatory Visit Summaryon 97-23-8161Ahfuxytggr Visit SummaryAmbulatory Visit Summary ASAEL HERNANDES :1945 [...] signed up for this yet, please contact [employer] at [phone] to get signed up today. Language Information Language assistance services are available as needed. [facility] HospitalCovid-19 PCR (CVDTBH)on 63-33-0781FQJL-CoV-2 (COVID-19) RNA HONORIO+probe Ql (Unsp spec)DetectedAbnormalNOT DETECTEDThe [facility] HospitalComment on above:Result Comment: This test is not yet approved or cleared by the [place] FDA. When there are no FDA-approved or cleared tests available, and other criteria are met, FDA can make tests available under an emergency access mechanism called an Emergency Use Authorization (EUA). The EUA for this test is supported by the [employer] of Health and Human Service's declaration that [...] longer be used).Performed By: #### CVDTBH #### [facility] [address] [place] [address] Dr. Deven GeCT HEAD WO CONon [id number] HEAD WO CONEXAM: CT HEAD WO CON [...] Electronically authenticated by: AARON VICENTE Date: 2022-04-13 22:58NoMer[address] Health [address]. Joseph Warren HospitalINSULINon 46-93-8544Oxnsqmd04.5 uIU/mLNormal2.6-24.9The [facility] HospitalComment on above:Performed By: #### INSULIN #### [facility] [address] [place] [address] Dr. Deven GeT4, T3U, FTI LABCORPon 73-37-3227Eddi Thyroxine Index2.2Normal 1.2-4.9The [facility] HospitalComment on above:Performed By: #### THYLC #### [facility] [address] [place] [address] Dr. Deven GeT3 Vkqhqf51 %Xazryu05-92Odc [facility] HospitalComment on above: Performed By: #### THYLC #### [facility] [address] [place] [address] Dr. Deven GeT4 [Mass/Vol]8.2 ug/dLNormal4.5-12.0[facility] HospitalComment on above:Performed By: #### THYLC #### [facility] [address] [place] [address] Dr. Deven SimpsonC AUTO DIFFon 67-61-2465SHCT #0.0 103/ulNormal0.0-0.1The [facility] HospitalComment on above:Performed By: #### CBC ####[facility] [address] [place], [place] [address]Dr.Deven ChangBasophils/100 WBC (Bld)0.4 %Normal0.2-2.0The [facility] HospitalComment on above:Performed By: #### CBC ####[facility] [address] [place], [place] [address]Dr.Deven ChangEO #0.1 103/ulNormal0.0-0.7The [facility] HospitalComment on above:Performed By: #### CBC ####[facility] J[address] [place], [place] [address]Dr.Deven ChangEosinophils/100 WBC (Bld)1.9 %Normal 0.9-7.0The [facility] HospitalComment on above:Performed By: #### CBC ####[facility] [address] [place], [place] [address]Dr.Deven Ge Erythrocyte distribution width (RBC) [Ratio]12.6 %Jwlomh79.0-15.0[facility] on above:Performed By: #### CBC ####[facility] Y[address] [place], [place] [address]Dr.Deven GeHematocrit (Bld) [Volume fraction]40.7 %Rwgyxs36.0-48.0The [facility] HospitalComment on above:Performed By: #### CBC ####[facility] [address] [place], [place] [address]Dr.Deven GeHemoglobin (Bld) [Mass/Vol]13.4 g/dL Kxfgku20.0-16.0The [facility] Hospitalment on above:Performed By: #### CBC ####[facility] [address] [place], [place] [address]Dr. Deven GeIG #0.02 10e3/ulNormal0.00-0.03The [facility] HospitalComment on above: Performed By: #### CBC ####[facility] [address] [address]Dr.Deven GeIG %0.3 %Normal0.0-0.5The [facility] HospitalComment on above:Performed By: #### CBC ####[facility] [address] [address]Dr.Deven GeLYMPH #2.1 103/ulNormal1.2-3.8The [facility] HospitalComment on above:Performed By: #### CBC ####[facility] [address] [address]Dr. Deven GeLymphocytes/100 WBC (Bld)31.2 %Xtwmsn38.5-60.0[facility] Comment on above:Performed By: #### CBC ####[facility] [address] [place], [place] [address]Dr.Deven GeMANUAL DIFF REQNONormalThe [facility] HospitalComment on above:Performed By: #### CBC ####[facility] [address] [place], [place] [address]Dr.Deven GeH (RBC) [Entitic mass]31.2 deBwpuoh91.7-34.0[facility] HospitalCompromedica [facility] on above: Performed By: #### CBC ####[facility] [address] [place], [place] [address]Dr.Deven GeHC (RBC) [Mass/Vol]32.9 g/dLNormal 29.9-35.2[facility] HospitalComment on above:Performed By: #### CBC ####[facility] [address] [place], [place] [address]Dr. Deven GeV (RBC) [Entitic vol]94.9 qVSfohvf13.0-99.0[facility] Comment on above:Performed By: #### CBC ####[facility] Fsciigbvhx[address] [place], [place] [address]Dr.Deven JooMONO #0.5 103/ulNormal0.3-0.8 The [facility] HospitalComment on above:Performed By: #### CBC ####[facility] [address] [address]Dr.Deven eG Monocytes/100 WBC (Bld)6.6 %Normal1.7-12.0The [facility] HospitalComment on above: Performed By: #### CBC ####[facility] [address]lt[address]rp[address] [place], [place] [address]Dr.Deven GeNEUT #4.1 103/ulNormal1.4-6.5The [facility] HospitalComment on above:Performed By: #### CBC ####[facility] F[address]wa[address] [place], [place] [address]Dr.Deven GeNeutrophils/100 WBC (Bld)59.6 %Ysxpsm51.0-75.0The [facility] HospitalComment on above:Performed By: #### CBC ####[facility] Xmszzinj[address] [place], [place] [address]Dr.Deven GePlatelet mean volume (Bld) [Entitic vol]10.7 fLNormal9.5-13.5 The [facility] HospitalComment on above:Performed By: #### CBC ####[facility] [address] [place], [place] [address]Dr.Deven DhwogGPB009 103/alWfanoz327-361Bzw [facility] HospitalComment on above:Performed By: #### CBC ####[facility] [address] [place], [place] [address]Dr. Deven ChangRBC4.29 106/ulNormal4.20-5.40The [facility] HospitalComment on above: Performed By: #### CBC ####[facility] [address] [place], [place] [address]Dr.Deven ChangWBC6.9 103/ulNormal4.0-11.0The [facility] HospitalComment on above:Performed By: #### CBC ####[facility] [address] [place], [place] [address]Dr.Deven GeGLYCOHEMOGLOBIN A1Con 82-92-9145YTX RECOMMENDATIONSEE [facility] on above:Result Comment: ADA RECOMMENDED LIMIT 4.0 - 6.0 ADA THERAPEUTIC TARGET < 7.0 ACTION SUGGESTED > 7.0Performed By: #### A1C #### [facility] [address] [place] [address] Dr. Deven GeGlucose [Mass/Vol]111 mg/dLCleveland Clinic Children's Hospital for Rehabilitation on above:Performed By: #### A1C #### [facility] [address] [address] [address] Deven GeHbA1c (Bld) [Mass fraction]5.5 %Normal4.5-6.2[facility] on above:Performed By: #### A1C #### [facility] [address] [place] [address] Dr. Deven Jones 13-83-4755Boha [Mass/Vol]111.0 ug/kVIwgmcp55.0-170.0[facility] on above:Performed By: #### IRON #### [facility] [address] [place] [address] Dr. Deven GeLIPID PROFILEon 44-16-8312ZAUJ-HDL RATIO NORMSEE [facility] HospitalComp[facility] on above:Result Comment: 3.3 - 4.4 LOW RISK 4.4 - 7.1 AVERAGE RISK 7.1 - 11.0 MODERATE RISK >11.0 HIGH RISKPerformed By: #### LIPID, CMP, TSH #### [facility] [address] [place] [address] Dr. Deven GeCholesterol [Mass/Vol]220 mg/dLCritically high<=200[facility] on above:Performed By: #### LIPID, CMP, TSH #### [facility] [address] [place] [address] Dr. Deven GeCholesterol in HDL [Mass/Vol]61 mg/dLCritically nvtz27-23Msi [facility] on above:Performed By: #### LIPID, CMP, TSH #### [facility] [address] [place] [address] Dr. Deven Velezesterol in LDL [Mass/Vol]132.2 mg/dLMercy Health St. Joseph Warren HospitalComment on above:Performed By: #### LIPID, CMP, TSH #### [facility] [address] [place] [address] Dr. Deven Lomax.total/Cholesterol in HDL [Mass ratio]3.6 {ratio} NormalSuburban Community Hospital & Brentwood HospitalComment on above:Performed By: #### LIPID, CMP, TSH #### [facility] [address] [address] [address] Deven Mora NORMAL> or = 60 mg/dl - LOW CARDIOVASCULAR RISK <40 mg/dl - HIGH CARDIOVASCULAR RISKMercy Health St. Joseph Warren HospitalComment on above:Performed By: #### LIPID, CMP, TSH #### [facility] [address] [place] [address] Dr. Deven Rae CALC NORMALSEE BELOWNoMercy Health St. Joseph Warren HospitalComment on above:Result Comment: <100 mg/dl OPTIMAL 100 - 129 mg/dl NEAR OR ABOVE OPTIMAL 130 - 159 mg/dl BORDERLINE HIGH 160 - 189 mg/dl HIGH >190 mg/dl VERY HIGH Performed By: #### LIPID, CMP, TSH #### [facility] [address] [address] [address] Deven GeTriglyceride [Mass/Vol]134 mg/dLNormal<=150[facility] Comment on above:Performed By: #### LIPID, CMP, TSH #### [facility] [address] [place] [address] Dr. Deven GeVLDL CALC26.8 mg/dLNoMercy Health St. Joseph Warren HospitalComment on above: Performed By: #### LIPID, CMP, TSH #### [facility] [address] [place] [address] Dr. Deven GeMG MAMM SCREEN 3D CHRISTIANO CADon 79-33-9619RI MAMM SCREEN 3D CHRISTIANO CAD Patient: ASAEL HERNANDES Exam Date: 03/18/2022 : 1945 Gender:F Ordering : DR SUMAN HUSTON . Admission #: [id number] Family : Order #: [id number] CLICK HERE TO VIEW EXAM RADIOLOGY REPORT [...] by: Denis Montez M.D. on 03/18/2022 at 14:52[facility] Warren HospitalPRO 14(COMP METB)on 79-21-5608Boowdqd [Mass/Vol]3.6 g/dLNormal3.4-5.0 The [facility] HospitalComment on above:Performed By: #### LIPID, CMP, TSH #### [facility] [address] [place] [address] Dr. Deven GeAlbumin/Globulin [Mass ratio]1.0 {ratio}NormalThe [facility] HospitalComment on above:Performed By: #### LIPID, CMP, TSH #### [facility] [address] [address] [address] Deven Carrasco [Catalytic activity/Vol]69 U/KUxwjyc17-854Zuv [facility] on above:Performed By: #### LIPID, CMP, TSH #### [facility] [address] [address] [address] Deven MacedoT [Catalytic activity/Vol]24 U/HDtsntn39-44Wmx [facility] HospitalComment on above:Performed By: #### LIPID, CMP, TSH #### [facility] [address] [address] [address] Deven Manleyon gap [Moles/Vol]11.2 mmol/LNormalThe [facility] Comment on above:Performed By: #### LIPID, CMP, TSH #### [facility] [address] [address] [address] Deven GeAST [Catalytic activity/Vol]13 U/LCritically dfl28-98Pci [facility] HospitalComment on above:Performed By: #### LIPID, CMP, TSH #### [facility] [address] [address] [address] Deven GeBilirubin [Mass/Vol]0.4 mg/dLNormal0.2-1.0[facility] Comment on above:Performed By: #### LIPID, CMP, TSH #### [facility] [address] [address] [address] Deven GeCalcium [Mass/Vol]9.0 mg/dLNormal8.5-10.1[facility] Comment on above:Performed By: #### LIPID, CMP, TSH #### [facility] [address] [address] [address] Deven GeChloride [Moles/Vol]104 mmol/VIiuvtw30-092Dwf [facility] Comment on above:Performed By: #### LIPID, CMP, TSH #### [facility] [address] [address] [address] Deven GeCO2 [Moles/Vol]31.0 mmol/LLrboru31.0-32.0[facility] Comment on above:Performed By: #### LIPID, CMP, TSH #### [facility] [address] [address] [address] Deven GeCreatinine [Mass/Vol]0.87 mg/dLNormal0.55-1.02The [facility] HospitalComment on above:Performed By: #### LIPID, CMP, TSH #### [facility] [address] [address] [address] Deven HillGFR-AF INDIAN>60Normal>=60The [facility] HospitalComment on above:Performed By: #### LIPID, CMP, TSH #### [facility] [address] [address] [address] Deven HillGFR-NON AF INDIAN>60Normal>=60The [facility] HospitalComment on above:Performed By: #### LIPID, CMP, TSH #### [facility] [address] [address] [address] Deven eGGlobulin (S) [Mass/Vol]3.5 g/dLNormalThe [facility] HospitalComment on above:Performed By: #### LIPID, CMP, TSH #### [facility] [address] [address] [address] Deven GeGlucose [Mass/Vol]117 mg/dLCritically lbvh50-820Uzv [facility] Hospitalment on above:Performed By: #### LIPID, CMP, TSH #### [facility] [address] [address] [address] Deven GePotassium [Moles/Vol]4.2 mmol/LNormal3.5-5.1[facility] Comment on above:Performed By: #### LIPID, CMP, TSH #### [facility] [address] [address] [address] Deven GeProtein [Mass/Vol]7.1 g/dLNormal6.4-8.2[facility] Comment on above:Performed By: #### LIPID, CMP, TSH #### [facility] [address] [address] [address] Deven GeSodium [Moles/Vol]142 mmol/OMweowm116-547BfuSuburban Community Hospital & [facility] Comment on above:Performed By: #### LIPID, CMP, TSH #### [facility] [address] [address] [address] Deven GeUrea nitrogen [Mass/Vol]12.0 mg/dLNormal7.0-18.0The [facility] HospitalComment on above:Performed By: #### LIPID, CMP, TSH #### [facility] [address] [place] [address] Dr. Deven GeUrea nitrogen/Creatinine [Mass ratio]13.8 mg/mgNormalThe [facility] HospitalComment on above:Performed By: #### LIPID, CMP, TSH #### [facility] [address] [address] [address] Deven Batres 27-61-9243EEK7.703 uIU/mLNormal0.358-3.740The [facility] HospitalComment on above:Performed By: #### LIPID, CMP, TSH #### [facility] [address] [address] [address] Devne Ge Encounters Encounter DateEncounter TypeCare ProviderFacilityStart: 04-29-2025 End: 02-08-1563djlfrovkqoGyxzowf R NILLFacility:[facility] CenterueStart: 04-29-2025 End: 44-01-4789Lbavvyg encounter procedureMichael R NILL [phone]-CwqzoSelect [facility] [place] Start: 09-21-2022 End: 04-52-2369vdbmwnubamOI SUMAN HOY .Facility:J7Iafph: 04-13-2022 End: 96-53-2228akovvkqjytPF SUMAN HOY .Facility:T6Eeccl: 03-18-2022 End: 45-38-5699frpezehkamLM SUMAN HOY .Facility: Procedures DateProcedureProcedure DetailPerforming ClinicianStart: 64-30-8125Jzikprrkpso Pavel NILL Start: 50-27-7003Qwsmcuc resection of colonMichael NILL Abdominal hysterectomyMichael NILL AppendectomyMichael NILL Cardiac catheterizationMichael NILL ColonoscopyMichael NILL TonsillectomyMichael NILL Immunizations Immunization DateImmunizationNotesCare ImfsqjfoAkakffbt35-36-4375XDJS-JdR-2 (COVID-19) mRNAMUL.ORD!k06162Dbnwgje NILL [phone]-FsvkyHolzer Health System [facility] [place] 61-73-1971MNIY-CoV-2 mRNA (anxauxhszsg-mhdb-ywynhqy) vaccineMichael NILL [phone]-BxdsjOhiohealth [facility]ide [facility] Hospital 95-26-6061CWRP-CoV-2 (COVID-19) mRNA BNT-162b2 vaxMichael NILL [phone]-FooifOhiohealth Riverside Methodist Hospital 30-11-6997FKEE-CoV-2 (COVID-19) Ad26 vaccine, recombinantMichael NILL [phone]-IdwzmOhiohealth Riverside Methodist Hospital Payers DatePayer CategoryPayerPolicy [id number] [id number] Health [id number] [id number] 1960Private Health [id number] [id number] [id number] Social History DateTypeDetailFacilityStart: 82-60-5373Crozulc smoking statusEx-smoker (finding) [facility] HospitalueTobacco smoking statusNever [facility] HospitalueSexual OrientationFishWilson Street [facility] [place] Sex Assigned At BirthFeKindred HealthcareexFemale (finding)[facility] 04-29-2025 Note Date & PangKmusZlcwgadh20-90-6868 NoteGeneral Surgery Office/Clinic Note Chief Complaint consultation [...] tab(s), Oral, BID R (more content not included)...[facility]hillComment on above: Result Comment: Electronically Signed By: Pavel ARVIZU MD\Date and Time Signed: 04/29/25 15:06 EDT Evaluation + Plan note Note Date & TypeNoteFacilityEvaluation + Plan note No data available for this section [facility] [place] [facility] Discharge instructions Note Date & TypeNoteFacilityHospital Discharge instructions No data available for this section [facility] [place] Progress note Note Date & TypeNoteFacilityProgress note No data available for this section [facility] [place] Summary Purpose Family History No Family History Records FoundNo Family History Records Found No data available for this section Advance Directives No Advanced Directives Records FoundNo Advanced Directives Records Found Additional Source Comments INFORMATION SOURCE (unrecogn ized section and content) DATE CREATED AUTHOR 09/27/2022 [facility] DATE CREATED AUTHOR AUTHOR'S ORGANIZ ATION 04/30/2025 [facility] Patient Care team informatio n (unrecognized section and content) Personnel Name: Suman Huston MD Address: [address] [place] [address] [employer]: FOR RECORDS PERTAINING TO PATIENTS [...] BE BASED ON THE PRIMARY CLINICAL RECORDS. [facility] [address] [facility]. provides no warranty or guarantee of the accuracy or completeness of information in this document.
--- OUTSIDE RECORDS SUMMARY | 2025-05-21 08:01 | XMS_ITS | Clinical Summary ---
Author Organization [facility] Address [address] [place] [address] Care Team Providers Care Weed Eradicator Name Role Phone Unavailable Primary Care Provider Unavailabl e Social History Tobacco UseTypesPacks/DayYears UsedDateSmoking Tobacco: Never Assessed CommentsUnknownSex and Gender InformationValueDate RecordedSex Assigned at Not on fileLegal ZwnWmtqhf06/15/2023 7:40 PM EDTGender IdentityNot on fileSexual OrientationNot on file Plan of Treatment Not on file
[2025-05-21 09:43] VITALS: BP 95/46; PULSE 48; TEMP 36.3; O2SAT 97
[2025-05-21 09:58] VITALS: BP 105/57; PULSE 52; O2SAT 95
[2025-05-21 10:13] VITALS: BP 126/54; PULSE 55; O2SAT 95
== END 2025-05-21 10:13 | disposition home or self-care (01) ==
LOC: SURGOUT 07:55
PROVIDERS: PCP Family Medicine; Visit Provider Surgery
PROC: (CPT 45378; principal; 2025-05-21 08:55)
DX: R19.5 Other fecal abnormalities (principal); Z86.0101 Personal history of adenomatous and serrated colon polyps; Z85.038 Personal history of other malignant neoplasm of large intestine; Z90.49 Acquired absence of other specified parts of digestive tract; Z80.0 Family history of malignant neoplasm of digestive organs; I10 Essential (primary) hypertension; E78.5 Hyperlipidemia, unspecified; E03.9 Hypothyroidism, unspecified; K21.9 Gastro-esophageal reflux disease without esophagitis; Z86.16 Personal history of COVID-19; Z90.710 Acquired absence of both cervix and uterus; Z87.891 Personal history of nicotine dependence; M19.90 Unspecified osteoarthritis, unspecified site; Q43.8 Other specified congenital malformations of intestine
CPT/HCPCS: 45378; J2704